=== PATIENT | male | born 1960 | race Two or more races ===

== ENCOUNTER 2017-09-16 09:29 | Emergency (ER) | payer MEDICAID ==
[~2017-09-16] VITALS: Ht 175.3 cm; Wt 94.0 kg
[~2017-09-16 09:29] MED LIST: ATOR40TA PO; BENZ0.5T38 PO; CARV3.122 PO; CITA40TA22 PO; LEVO75TA PO; LORA0.5T PO; MIRT15TA PO; OMEP20CA10 PO; RISP1TAB3 PO; SERT50TA PO
[2017-09-16 09:39] VITALS: BP 136/90
[2017-09-16 10:16] LABS: BASOPHILS % (AUTO) 0.6 % (0-1); EOSINOPHILS # (AUTO) 0.1 X10'3 (0-0.9); EOSINOPHILS % (AUTO) 2.4 % (0-6); HEMATOCRIT 43.2 % (42.0-52.0); HEMOGLOBIN 15.1 g/dl (14.0-17.9); LYMPHOCYTES # (AUTO) 1.3 X10'3 (1.1-4.8); LYMPHOCYTES % (AUTO) 23.4 % (21-51); MEAN CORPUSCULAR HEMOGLOBIN 28.7 PG (27.0-31.0); MEAN CORPUSCULAR HGB CONC 35.1 % (33.0-36.5); MEAN CORPUSCULAR VOLUME 81.9 FL (78-98); MEAN PLATELET VOLUME 8.5 FL (7.4-10.4); MONOCYTES # (AUTO) 0.5 X10'3 (0-0.9); MONOCYTES % (AUTO) 8.5 % (2-12); NEUTROPHILS # (AUTO) 3.7 X10'3 (1.8-7.7); NEUTROPHILS % (AUTO) 65.1 % (42-75); PLATELET COUNT 168 X10'3 (140-440); RED BLOOD COUNT 5.27 X10'6 (4.70-6.10); RED CELL DISTRIBUTION WIDTH 16.5 % (11.5-14.5); WHITE BLOOD COUNT 5.8 X10'3 (4.5-11.0)
[2017-09-16 10:26] LABS: INR 1.1 INR; PARTIAL THROMBOPLASTIN TIME 28 SECONDS (22-32); PROTHROMBIN TIME 11.5 SECONDS (9.0-12.0)
[2017-09-16 10:31] LABS: ALANINE AMINOTRANSFERASE 25 U/L (12-78); ALBUMIN/GLOBULIN RATIO 1.3 (1.1-1.5); ALKALINE PHOSPHATASE 179 IU/L (46-116); ANION GAP 6 (8-16); ASPARTATE AMINO TRANSFERASE 21 U/L (10-37); BILIRUBIN,TOTAL 0.9 MG/DL (0.1-1.0); BLOOD UREA NITROGEN 11 MG/DL (7-18); BUN/CREATININE RATIO 10.1 (5.4-32.0); CALCIUM 9.1 MG/DL (8.5-10.1); CHLORIDE 105 MMOL/L (99-107); CREATININE 1.09 MG/DL (0.60-1.10); GLUCOSE 97 MG/DL (70-104); SODIUM 140 MMOL/L (135-145); TOTAL CARBON DIOXIDE 28.8 MMOL/L (24-32); TOTAL PROTEIN 7.1 G/DL (6.4-8.2); eGFR 69 ML/MIN
== END 2017-09-16 13:08 | disposition home or self-care (01) ==
LOC: ER 09:31
DX: R53.81 Other malaise (principal); R51 Headache; M54.2 Cervicalgia; F12.90 Cannabis use, unspecified, uncomplicated; Z88.8 Allergy status to other drugs, medicaments and biological substances; Z79.899 Other long term (current) drug therapy
CPT/HCPCS: 36415; 71045; 80053; 83880; 84484; 85025; 85610; 85730; 93005; 99285

== ENCOUNTER 2018-01-26 11:59 | Emergency (ER) | payer MEDICAID ==
[~2018-01-26] VITALS: Ht 175.3 cm; Wt 103.0 kg
[2018-01-26 12:09] VITALS: BP 161/96
[2018-01-26] MEDS ORDERED: QUET150T2 PO (12:52)
== END 2018-01-26 14:27 | disposition home or self-care (01) ==
LOC: ER 12:03
DX: F41.9 Anxiety disorder, unspecified (principal); G47.00 Insomnia, unspecified; I10 Essential (primary) hypertension; E78.00 Pure hypercholesterolemia, unspecified; J44.1 Chronic obstructive pulmonary disease with (acute) exacerbation; F17.200 Nicotine dependence, unspecified, uncomplicated; F12.90 Cannabis use, unspecified, uncomplicated; Z88.8 Allergy status to other drugs, medicaments and biological substances; Z79.899 Other long term (current) drug therapy
CPT/HCPCS: 93005; 99284

== ENCOUNTER 2019-03-08 08:17 | Inpatient (IN) | payer MEDICAID ==
[~2019-03-08] VITALS: Ht 170.2 cm; Wt 112.4 kg
[2019-03-08] VITALS (10 sets, daily range): BP systolic 93–120; BP diastolic 46–68
[~2019-03-08 08:17] MED LIST changes: +BENZ0.5T27 PO; -BENZ0.5T38 PO; -OMEP20CA10 PO; +OMEP20CA15 PO
[2019-03-08] MEDS ORDERED: normal saline 1000ML IV soln IV ONE (08:40)
[2019-03-08] MEDS ORDERED: piperacillin/tazo 3.375gm/50ml 50 ML IV ONE (08:50)
[2019-03-08] MEDS ORDERED: VANCOMYCIN 1gm/H2O 200ml PB 200 ML IV ONE (08:50)
[2019-03-08 09:17] LABS: BASOPHILS % (AUTO) 0.2 % (0-1); EOSINOPHILS % (AUTO) 0 % (0-6); HEMATOCRIT 24.8 % (42.0-52.0); HEMOGLOBIN 8.5 g/dl (14.0-17.9); LYMPHOCYTES # (AUTO) 0.4 X10'3 (1.1-4.8); LYMPHOCYTES % (AUTO) 3.1 % (21-51); MEAN CORPUSCULAR HEMOGLOBIN 31.4 PG (27.0-31.0); MEAN CORPUSCULAR HGB CONC 34.3 g/dL (33.0-36.5); MEAN CORPUSCULAR VOLUME 91.5 FL (78-98); MONOCYTES # (AUTO) 0.8 X10'3 (0-0.9); MONOCYTES % (AUTO) 6.6 % (2-12); NEUTROPHILS # (AUTO) 11.3 X10'3 (1.8-7.7); NEUTROPHILS % (AUTO) 90.1 % (42-75); PLATELET COUNT 269 X10'3 (140-440); RED BLOOD COUNT 2.71 X10'6 (4.70-6.10); RED CELL DISTRIBUTION WIDTH 14.6 % (11.5-14.5); WHITE BLOOD COUNT 12.5 X10'3 (4.5-11.0)
[2019-03-08 09:34] LABS: ALANINE AMINOTRANSFERASE 15 U/L (12-78); ALBUMIN 2.4 G/DL (3.4-5.0); ALBUMIN/GLOBULIN RATIO 0.8 (1.1-1.5); ALKALINE PHOSPHATASE 117 IU/L (46-116); ANION GAP 21 (8-16); ASPARTATE AMINO TRANSFERASE 15 U/L (10-37); BILIRUBIN,TOTAL 0.4 MG/DL (0.1-1.0); BLOOD UREA NITROGEN 85 MG/DL (7-18); BUN/CREATININE RATIO 21.9 (5.4-32.0); CALCIUM 7.8 MG/DL (8.5-10.1); CHLORIDE 112 MMOL/L (99-107); CREATININE 3.88 MG/DL (0.60-1.10); ETHANOL < 0.010 GM/DL (0.0-0.010); GLUCOSE 166 MG/DL (70-104); POTASSIUM 3.3 MMOL/L (3.5-5.1); SODIUM 139 MMOL/L (135-145); TOTAL PROTEIN 5.4 G/DL (6.4-8.2); eGFR 16 ML/MIN
[2019-03-08 09:40] LABS: TOTAL CARBON DIOXIDE 5.9 MMOL/L (24-32)
[2019-03-08] MEDS ORDERED: heparin 10,000 units/1 ML INJ IV ONE ×2 (09:50→09:55)
[2019-03-08] MEDS: heparin 25,000 UNIT/250ml bag 250 ML IV SCH (10:08)
[2019-03-08 10:20] LABS: ABG HCO3 5.9 mmol/L (22.0-26.0); ABG OXYGEN SATURATION 71.4 % (95-98); ABG PCO2 (T) 19.6 mmHg (35.0-45.0); ABG PH (T) 7.095 (7.350-7.450); ABG PO2 (T) 38.6 mmHg (83-108); ALLEN'S TEST Positive; FCOHb 0.3 % (0.5-1.5); FMetHb 0.1 % (0.3-1.12); FO2Hb 71.1 % (94-100); TOTAL HEMOGLOBIN 8.7 G/dl (14.0-17.9)
--- NOTE | 2019-03-08 10:34 | NUR ---
Pat to CT at this time with FIDEL Medellin, c-collar in place, IV fluids continued (see emar).
[2019-03-08 10:48] LABS: CLARITY,URINE SLIGHTLY CLOUDY (Clear); COLOR,URINE YELLOW (Yellow); GLUCOSE, URINE NEGATIVE (Neg); KETONES,URINE NEGATIVE (Neg); LEUKOCYTE ESTERASE ,URINE NEGATIVE (Neg); NITRITES, URINE NEGATIVE (Neg); OCCULT BLOOD,URINE LARGE (Neg); PROTEIN,URINE 30 mg/dl (Neg); UA COLLECTION TYPE FOLEY CATH; UROBILINOGEN,URINE 0.2 E.U/dL (0.2-1.0)
--- NOTE | 2019-03-08 10:56 | NUR ---
BACK FROM CT AT THIS TIME, NO SIGNS OF DISTRESS NOTED, PATIENT AWAKE, AND ALERT, REPOSITIONED FOR COMFORT.
[2019-03-08 10:57] LABS: SQUAMOUS EPITHELIAL CELL,UR FEW /LPF (FEW)
[2019-03-08 10:58] LABS: BACTERIA,URINE FEW /HPF (Neg); MUCUS STRANDS FEW /LPF (Neg); RBC,URINE 0-2 /HPF (0-2); RENAL CELLS, URINE MANY /HPF; TRANSITIONAL EPI CELLS,URINE MODERATE /HPF; WBC,URINE 0-4 /HPF (0-4)
[2019-03-08] MEDS: sodium bicarbonate (8.4%) inj. 75 MEQ in sodium chloride 0.45% 1,000 ML IV SCH ×2 (10:59→17:24)
[2019-03-08] MEDS ORDERED: sodium bicarbonate (8.4%) inj. 100 MEQ in dextrose 5%-water 1,000 ML IV ONE (11:00)
[2019-03-08 11:16] LABS: URINE AMPHETAMINE SCREEN NEGATIVE (Neg); URINE BARBITUATE SCREEN NEGATIVE (Neg); URINE BENZODIAZEPINES SCREEN NEGATIVE (Neg); URINE CANNABINOID SCREEN POSITIVE (Neg); URINE COCAINE SCREEN NEGATIVE (Neg); URINE METHADONE SCREEN NEGATIVE (Neg); URINE OPIATE SCREEN NEGATIVE (Neg); URINE PHENCYCLIDINE SCREEN NEGATIVE (Neg)
[2019-03-08] MEDS: enoxaparin 40mg/0.4ml syringe SUBCUT SCH (11:24)
--- NOTE | 2019-03-08 11:50 | NUR ---
Patient in room CICU 2010. I have received report from Veronica PARRA and had the opportunity to ask questions and assume patient care. Patient arrived on unit via gurney accompanied by ed transporter, NC 6L sating 100%, patient in SR, with stable blood pressure, bicarb and heparin infusing, patient has a cold left foot, and blackened toe. Patient transferred to bed with no issues. Patient is very confused and needs constant reorientation
--- NOTE | 2019-03-08 13:20 | NUR ---
Patient confused and pulling at lines and quiroz, reorient patient and sitting outside of the door
[2019-03-08] MEDS ORDERED: etomidate 2mg/ml inj. ONE (14:00)
[2019-03-08] MEDS ORDERED: sod chloride 0.9% 10ml flush syringe IV ONE (14:00)
[2019-03-08 14:08] LABS: MAGNESIUM 2.9 MG/DL (1.5-2.4); PHOSPHORUS 3.3 MG/DL (2.3-4.5)
--- NOTE | 2019-03-08 14:30 | NUR ---
patient tried to crawl out of bed and pull quiroz out, reoriented patient
--- NOTE | 2019-03-08 15:15 | NUR ---
patient tried to pull out his quiroz again and continues to try and get out of bed
[2019-03-08] MEDS ORDERED: ASEN10TA9 SL (16:33)
[2019-03-08] MEDS ORDERED: AMIT25TA9 PO (16:33)
[2019-03-08] MEDS ORDERED: CLON0.5T4 PO (16:33)
[2019-03-08] MEDS ORDERED: LAMO100T PO (16:33)
[2019-03-08] MEDS ORDERED: ATOR40TA72 PO (16:33)
[2019-03-08] MEDS ORDERED: NAPR-1166 PO (16:33)
[2019-03-08] MEDS ORDERED: CARV6.253 PO (16:33)
[2019-03-08] MEDS ORDERED: BENZ1TAB7 PO (16:33)
[2019-03-08] MEDS ORDERED: LISI-600 PO (16:33)
[2019-03-08] MEDS ORDERED: LEVO137T2 PO (16:33)
[2019-03-08] MEDS ORDERED: MUPI22OI30 TOP (16:33)
--- NOTE | 2019-03-08 16:55 | NUR ---
In other patients room went to check on patient and he had pulled out his L AC field start, Cheyenne Briscoe was able to get a new R wrist IV started. Discussed patients behavior with charge nurse, and the need for the patient to have a sitter
--- NOTE | 2019-03-08 17:20 | NUR ---
patient pulled out his second iv, have placed mittens on patient to help protect him from pulling anything further out
[2019-03-08 17:25] LABS: CREATINE KINASE 844 U/L (39-308)
--- NOTE | 2019-03-08 18:00 | NUR ---
Patient in room CICU 2010. I have received report from FIDEL Quinn and had the opportunity to ask questions and assume patient care.
[2019-03-08 18:08] LABS: PARTIAL THROMBOPLASTIN TIME > 139 SECONDS (22-32)
--- NOTE | 2019-03-08 18:20 | NUR ---
Patient in room CICU 2010. I have received report from FIDEL Lott and had the opportunity to ask questions and assume patient care.
--- NOTE | 2019-03-08 18:28 | NUR ---
Problems reprioritized. Patient report given, questions answered & plan of care reviewed with Marianna PARRA.
--- NOTE | 2019-03-08 20:58 | NUR ---
Restarted Heparin drip 45 min late from 120 min pause. Will redraw patient DVT PTT at 2300.
[2019-03-08] MEDS ORDERED: HYDROmorphone inj. 0.5 MG/0.5 ML DISP.SYRIN IV PRN (21:00)
[2019-03-08] MEDS: HYDROmorphone inj. 0.5 MG/0.5 ML DISP.SYRIN IV PRN (21:21)
[2019-03-08 23:42] LABS: TOTAL PROTEIN,URINE RANDOM 62.8 MG/DL
[2019-03-08 23:43] LABS: CREATININE,URINE RANDOM 45.6 MG/DL
[2019-03-09] VITALS (26 sets, daily range): BP systolic 81–116; BP diastolic 48–68
[2019-03-09] MEDS: sodium bicarbonate (8.4%) inj. 75 MEQ in sodium chloride 0.45% 1,000 ML IV SCH ×4 (01:03→23:32)
--- NOTE | 2019-03-09 01:22 | NUR ---
drawn late Addendum: 03/09/19 at 0123 by Dariela Massey RN Amended: Links added.
--- NOTE | 2019-03-09 01:23 | NUR ---
Bed is not weighing patient correctly at this time, will re-attempt. Addendum: 03/09/19 at 0123 by Dariela Massey RN Amended: Links added.
[2019-03-09] MEDS: HYDROmorphone inj. 0.5 MG/0.5 ML DISP.SYRIN IV PRN ×3 (01:47→21:31)
[2019-03-09] MEDS: heparin 25,000 UNIT/250ml bag 250 ML IV SCH ×2 (02:26→19:34)
[2019-03-09 04:28] LABS: BASOPHILS % (AUTO) 0.1 % (0-1); EOSINOPHILS % (AUTO) 0 % (0-6); HEMOGLOBIN 7.1 g/dl (14.0-17.9); LYMPHOCYTES # (AUTO) 0.5 X10'3 (1.1-4.8); LYMPHOCYTES % (AUTO) 3.1 % (21-51); MEAN CORPUSCULAR HEMOGLOBIN 31.4 PG (27.0-31.0); MEAN CORPUSCULAR HGB CONC 35.5 g/dL (33.0-36.5); MEAN CORPUSCULAR VOLUME 88.3 FL (78-98); MEAN PLATELET VOLUME 7.5 FL (7.4-10.4); MONOCYTES % (AUTO) 6.5 % (2-12); NEUTROPHILS % (AUTO) 90.3 % (42-75); PLATELET COUNT 232 X10'3 (140-440); RED BLOOD COUNT 2.28 X10'6 (4.70-6.10); RED CELL DISTRIBUTION WIDTH 14.7 % (11.5-14.5); WHITE BLOOD COUNT 15.6 X10'3 (4.5-11.0)
[2019-03-09 04:32] LABS: HEMATOCRIT 20.1 % (42.0-52.0)
[2019-03-09 04:50] LABS: ALANINE AMINOTRANSFERASE 25 U/L (12-78); ALBUMIN 2.2 G/DL (3.4-5.0); ALBUMIN/GLOBULIN RATIO 0.8 (1.1-1.5); ALKALINE PHOSPHATASE 103 IU/L (46-116); ANION GAP 16 (8-16); ASPARTATE AMINO TRANSFERASE 105 U/L (10-37); BILIRUBIN,TOTAL 0.4 MG/DL (0.1-1.0); BLOOD UREA NITROGEN 75 MG/DL (7-18); BUN/CREATININE RATIO 26.4 (5.4-32.0); CHLORIDE 115 MMOL/L (99-107); CREATININE 2.84 MG/DL (0.60-1.10); GLUCOSE 131 MG/DL (70-104); MAGNESIUM 2.5 MG/DL (1.5-2.4); SODIUM 146 MMOL/L (135-145); TOTAL CARBON DIOXIDE 15.1 MMOL/L (24-32); TOTAL PROTEIN 4.9 G/DL (6.4-8.2); eGFR 23 ML/MIN
[2019-03-09 05:01] LABS: CREATINE KINASE 1622 U/L (39-308); POTASSIUM 2.2 MMOL/L (3.5-5.1)
--- NOTE | 2019-03-09 05:09 | NUR ---
Restraints off at approximately 0330. Addendum: 03/09/19 at 0510 by Dariela Massey RN Amended: Links added.
--- NOTE | 2019-03-09 05:28 | NUR ---
REPLACE POTASSIUM PER PROTOCOL. REDUCE AMOUNT BY HALF PER PROTOCOL FOR CREATININE ABOVE 2.5 Patient POTASSIUM IS 2.2, CREATININE IS 2.84. PER SUKHDEV, PHARMACIST GIVE PATIENT 4 BAGS OF POTASSIUM, NOT 8 BAGS PER PROTOCOL.
[2019-03-09] MEDS: potassium CL 10mEq/100ml bag 100 ML IV PRN ×4 (05:39→14:51)
--- NOTE | 2019-03-09 06:11 | NUR ---
Problems reprioritized. Patient report given, questions answered & plan of care reviewed with FIDEL Lott.
--- NOTE | 2019-03-09 06:30 | NUR ---
Patient in room CICU 2010. I have received report from Dariela Briscoe and had the opportunity to ask questions and assume patient care.
[2019-03-09] MEDS: enoxaparin 40mg/0.4ml syringe SUBCUT SCH (08:00)
--- NOTE | 2019-03-09 08:20 | NUR ---
called in regards to the repeat CPK being elevated at 1622 from 844, he stated that he will think about what he is going to do next
[2019-03-09 10:27] LABS: MEAN CORPUSCULAR HGB CONC 35.8 g/dL (33.0-36.5); MEAN CORPUSCULAR VOLUME 86.6 FL (78-98); MEAN PLATELET VOLUME 7.7 FL (7.4-10.4); PLATELET COUNT 233 X10'3 (140-440); RED BLOOD COUNT 2.17 X10'6 (4.70-6.10); RED CELL DISTRIBUTION WIDTH 14.8 % (11.5-14.5); WHITE BLOOD COUNT 15.5 X10'3 (4.5-11.0)
[2019-03-09 10:31] LABS: HEMATOCRIT 18.8 % (42.0-52.0); HEMOGLOBIN 6.7 g/dl (14.0-17.9)
[2019-03-09] MEDS: mupirocin 2% nasal ointment 1gm UD NS SCH ×2 (12:44→20:19)
[2019-03-09] MEDS: clonazePAM 0.5mg tablet PO SCH ×2 (12:44→20:17)
[2019-03-09 16:54] LABS: HEMOGLOBIN 7.7 g/dl (14.0-17.9); MEAN CORPUSCULAR HEMOGLOBIN 31.2 PG (27.0-31.0); MEAN CORPUSCULAR HGB CONC 35.3 g/dL (33.0-36.5); MEAN CORPUSCULAR VOLUME 88.6 FL (78-98); MEAN PLATELET VOLUME 8.1 FL (7.4-10.4); PLATELET COUNT 219 X10'3 (140-440); RED BLOOD COUNT 2.45 X10'6 (4.70-6.10); RED CELL DISTRIBUTION WIDTH 14.6 % (11.5-14.5); WHITE BLOOD COUNT 16.3 X10'3 (4.5-11.0)
[2019-03-09 16:59] LABS: HEMATOCRIT 21.7 % (42.0-52.0)
--- NOTE | 2019-03-09 18:43 | NUR ---
Problems reprioritized. Patient report given, questions answered & plan of care reviewed with Stuart PARRA.
[2019-03-09] MEDS: potassium Cl 20 mEq SR tablet PO PRN ×2 (19:28→23:32)
[2019-03-09] MEDS: ondansetron/PF 4mg/2ml inj IV PRN (19:28)
[2019-03-09] MEDS: atorvastatin 20mg tablet PO SCH (20:17)
[2019-03-09] MEDS: amitriptyline 25mg tablet PO SCH (20:17)
[2019-03-09] MEDS: benztropine 1mg tablet PO SCH (20:19)
[2019-03-09] MEDS ORDERED: lamoTRIgine 25mg tablet PO SCH (21:00)
[2019-03-10] VITALS (37 sets, daily range): BP systolic 81–123; BP diastolic 46–80
[2019-03-10] MEDS: HYDROmorphone inj. 0.5 MG/0.5 ML DISP.SYRIN IV PRN (03:45)
[2019-03-10 04:38] LABS: BASOPHILS % (AUTO) 0.1 % (0-1); EOSINOPHILS % (AUTO) 0 % (0-6); HEMOGLOBIN 7.2 g/dl (14.0-17.9); LYMPHOCYTES # (AUTO) 0.7 X10'3 (1.1-4.8); LYMPHOCYTES % (AUTO) 4.4 % (21-51); MEAN CORPUSCULAR HEMOGLOBIN 31.6 PG (27.0-31.0); MEAN CORPUSCULAR HGB CONC 35.7 g/dL (33.0-36.5); MEAN CORPUSCULAR VOLUME 88.3 FL (78-98); MEAN PLATELET VOLUME 7.9 FL (7.4-10.4); MONOCYTES % (AUTO) 6.1 % (2-12); NEUTROPHILS # (AUTO) 15.2 X10'3 (1.8-7.7); NEUTROPHILS % (AUTO) 89.4 % (42-75); PLATELET COUNT 201 X10'3 (140-440); RED BLOOD COUNT 2.29 X10'6 (4.70-6.10); RED CELL DISTRIBUTION WIDTH 14.4 % (11.5-14.5); WHITE BLOOD COUNT 17.1 X10'3 (4.5-11.0)
[2019-03-10 04:43] LABS: HEMATOCRIT 20.2 % (42.0-52.0)
[2019-03-10] MEDS: potassium Cl 20 mEq SR tablet PO PRN ×4 (04:47→13:34)
[2019-03-10 05:00] LABS: ALANINE AMINOTRANSFERASE 32 U/L (12-78); ALBUMIN/GLOBULIN RATIO 0.7 (1.1-1.5); ALKALINE PHOSPHATASE 107 IU/L (46-116); ANION GAP 14 (8-16); ASPARTATE AMINO TRANSFERASE 140 U/L (10-37); BILIRUBIN,TOTAL 0.6 MG/DL (0.1-1.0); BLOOD UREA NITROGEN 62 MG/DL (7-18); CALCIUM 7.1 MG/DL (8.5-10.1); CHLORIDE 112 MMOL/L (99-107); CREATININE 2.07 MG/DL (0.60-1.10); GLUCOSE 133 MG/DL (70-104); MAGNESIUM 2.1 MG/DL (1.5-2.4); PHOSPHORUS 1.7 MG/DL (2.3-4.5); SODIUM 143 MMOL/L (135-145); TOTAL CARBON DIOXIDE 17.2 MMOL/L (24-32); TOTAL PROTEIN 4.8 G/DL (6.4-8.2); eGFR 33 ML/MIN
[2019-03-10 05:04] LABS: POTASSIUM 2.3 MMOL/L (3.5-5.1)
[2019-03-10] MEDS: benztropine 1mg tablet PO SCH ×2 (07:38→20:24)
[2019-03-10] MEDS: levoTHYROXINE 25mcg tablet PO SCH (07:38)
[2019-03-10] MEDS: levoTHYROXINE 112mcg tablet PO SCH (07:38)
[2019-03-10] MEDS: ASENAPINE 10 MG SL SCH (07:39)
[2019-03-10] MEDS: clonazePAM 0.5mg tablet PO SCH ×3 (07:39→20:24)
[2019-03-10] MEDS: enoxaparin 40mg/0.4ml syringe SUBCUT SCH (07:39)
[2019-03-10] MEDS: mupirocin 2% nasal ointment 1gm UD NS SCH ×3 (07:45→20:24)
[2019-03-10] MEDS: sodium bicarbonate (8.4%) inj. 75 MEQ in sodium chloride 0.45% 1,000 ML IV SCH ×3 (07:46→20:26)
[2019-03-10] MEDS ORDERED: non-formulary drug (Levothyroxine Sodium 1 TAB) PO SCH (08:00)
[2019-03-10 10:01] LABS: MEAN CORPUSCULAR HEMOGLOBIN 31.4 PG (27.0-31.0); MEAN CORPUSCULAR HGB CONC 35.2 g/dL (33.0-36.5); MEAN PLATELET VOLUME 7.6 FL (7.4-10.4); PLATELET COUNT 209 X10'3 (140-440); RED BLOOD COUNT 2.24 X10'6 (4.70-6.10); RED CELL DISTRIBUTION WIDTH 14.6 % (11.5-14.5); WHITE BLOOD COUNT 16.5 X10'3 (4.5-11.0)
[2019-03-10] MEDS: heparin 25,000 UNIT/250ml bag 250 ML IV SCH (11:46)
[2019-03-10] MEDS: ondansetron/PF 4mg/2ml inj IV PRN (13:26)
[2019-03-10 13:48] LABS: OCCULT BLOOD STOOL NEGATIVE (Neg)
[2019-03-10 18:03] LABS: HEMOGLOBIN 7.6 g/dl (14.0-17.9); MEAN CORPUSCULAR HEMOGLOBIN 30.5 PG (27.0-31.0); MEAN CORPUSCULAR VOLUME 87.2 FL (78-98); MEAN PLATELET VOLUME 7.7 FL (7.4-10.4); PLATELET COUNT 199 X10'3 (140-440); RED BLOOD COUNT 2.49 X10'6 (4.70-6.10); RED CELL DISTRIBUTION WIDTH 15.3 % (11.5-14.5); WHITE BLOOD COUNT 14.1 X10'3 (4.5-11.0)
[2019-03-10 18:09] LABS: HEMATOCRIT 21.7 % (42.0-52.0)
[2019-03-10 18:41] LABS: % IRON SATURATION 78 % (11-46); IRON 93 UG/DL (53-167); TOTAL IRON BINDING CAPACITY 120 UG/DL (259-388)
[2019-03-10] MEDS: amitriptyline 25mg tablet PO SCH (20:24)
[2019-03-10] MEDS: atorvastatin 20mg tablet PO SCH (20:24)
[2019-03-10] MEDS: lamoTRIgine 25mg tablet PO SCH (20:25)
[2019-03-10] MEDS: lamoTRIgine 100mg tablet PO SCH (20:25)
[2019-03-10 23:13] LABS: HEMATOCRIT 24.8 % (42.0-52.0); MEAN CORPUSCULAR HGB CONC 32.3 g/dL (33.0-36.5); MEAN CORPUSCULAR VOLUME 95.9 FL (78-98); MEAN PLATELET VOLUME 7.1 FL (7.4-10.4); PLATELET COUNT 183 X10'3 (140-440); RED BLOOD COUNT 2.59 X10'6 (4.70-6.10); RED CELL DISTRIBUTION WIDTH 16.1 % (11.5-14.5)
[2019-03-11] VITALS (32 sets, daily range): BP systolic 83–119; BP diastolic 47–69
[2019-03-11] MEDS: nicotine 14mg patch - 24hr TD SCH ×2 (00:58→07:36)
[2019-03-11] MEDS: ondansetron/PF 4mg/2ml inj IV PRN (02:47)
[2019-03-11] MEDS: sodium bicarbonate (8.4%) inj. 75 MEQ in sodium chloride 0.45% 1,000 ML IV SCH ×3 (04:25→19:04)
[2019-03-11] MEDS: heparin 25,000 UNIT/250ml bag 250 ML IV SCH ×2 (04:26→11:40)
[2019-03-11] MEDS: HYDROmorphone inj. 0.5 MG/0.5 ML DISP.SYRIN IV PRN ×3 (05:50→17:29)
[2019-03-11 05:55] LABS: BASOPHILS % (AUTO) 0.1 % (0-1); EOSINOPHILS % (AUTO) 0.1 % (0-6); HEMOGLOBIN 7.2 g/dl (14.0-17.9); LYMPHOCYTES # (AUTO) 0.5 X10'3 (1.1-4.8); LYMPHOCYTES % (AUTO) 4.3 % (21-51); MEAN CORPUSCULAR HGB CONC 34.7 g/dL (33.0-36.5); MEAN CORPUSCULAR VOLUME 86.5 FL (78-98); MEAN PLATELET VOLUME 7.8 FL (7.4-10.4); MONOCYTES # (AUTO) 0.8 X10'3 (0-0.9); MONOCYTES % (AUTO) 6.4 % (2-12); NEUTROPHILS % (AUTO) 89.1 % (42-75); PLATELET COUNT 184 X10'3 (140-440); RED CELL DISTRIBUTION WIDTH 15.2 % (11.5-14.5); WHITE BLOOD COUNT 12.4 X10'3 (4.5-11.0)
[2019-03-11 06:07] LABS: HEMATOCRIT 20.7 % (42.0-52.0)
[2019-03-11 06:27] LABS: ALANINE AMINOTRANSFERASE 40 U/L (12-78); ALBUMIN 1.8 G/DL (3.4-5.0); ALBUMIN/GLOBULIN RATIO 0.8 (1.1-1.5); ALKALINE PHOSPHATASE 99 IU/L (46-116); ANION GAP 8 (8-16); ASPARTATE AMINO TRANSFERASE 161 U/L (10-37); BILIRUBIN,TOTAL 0.7 MG/DL (0.1-1.0); BLOOD UREA NITROGEN 55 MG/DL (7-18); BUN/CREATININE RATIO 29.7 (5.4-32.0); CALCIUM 7.2 MG/DL (8.5-10.1); CHLORIDE 113 MMOL/L (99-107); CREATININE 1.85 MG/DL (0.60-1.10); GLUCOSE 136 MG/DL (70-104); MAGNESIUM 1.9 MG/DL (1.5-2.4); PHOSPHORUS 1.3 MG/DL (2.3-4.5); SODIUM 144 MMOL/L (135-145); TOTAL CARBON DIOXIDE 23.3 MMOL/L (24-32); TOTAL PROTEIN 4.1 G/DL (6.4-8.2); eGFR 37 ML/MIN
[2019-03-11 06:34] LABS: POTASSIUM 2.6 MMOL/L (3.5-5.1)
[2019-03-11] MEDS: potassium Cl 20 mEq SR tablet PO PRN ×3 (07:36→17:26)
[2019-03-11] MEDS: benztropine 1mg tablet PO SCH ×2 (07:37→21:09)
[2019-03-11] MEDS: levoTHYROXINE 112mcg tablet PO SCH (07:37)
[2019-03-11] MEDS: levoTHYROXINE 25mcg tablet PO SCH (07:37)
[2019-03-11] MEDS: mupirocin 2% nasal ointment 1gm UD NS SCH (07:37)
[2019-03-11] MEDS: clonazePAM 0.5mg tablet PO SCH ×3 (07:37→21:01)
[2019-03-11] MEDS: ASENAPINE 10 MG SL SCH (07:53)
[2019-03-11 11:02] LABS: HEMATOCRIT 22.3 % (42.0-52.0); HEMOGLOBIN 7.9 g/dl (14.0-17.9); MEAN CORPUSCULAR HEMOGLOBIN 30.2 PG (27.0-31.0); MEAN CORPUSCULAR HGB CONC 35.3 g/dL (33.0-36.5); MEAN CORPUSCULAR VOLUME 85.7 FL (78-98); MEAN PLATELET VOLUME 7.5 FL (7.4-10.4); PLATELET COUNT 181 X10'3 (140-440); RED CELL DISTRIBUTION WIDTH 14.7 % (11.5-14.5); WHITE BLOOD COUNT 13.4 X10'3 (4.5-11.0)
[2019-03-11] MEDS ORDERED: iohexol 300mg/ml 100ml inj. ONE (14:37)
[2019-03-11] MEDS ORDERED: heparin 1,000 UNITS/NS 500ml 500 ML ONE (14:37)
[2019-03-11] MEDS ORDERED: fentaNYL/PF 50MCG/1 ML 2ML syringe ONE (14:37)
[2019-03-11] MEDS ORDERED: LIDOcaine 1%/PF 5ML 10 MG/ML VIAL ONE (14:37)
[2019-03-11] MEDS ORDERED: midazolam 2 mg/2 ml injection ONE (14:37)
--- NOTE | 2019-03-11 21:00 | NUR ---
Unable to obtain weight. AM staff will be notified.
[2019-03-11] MEDS: lamoTRIgine 25mg tablet PO SCH (21:01)
[2019-03-11] MEDS: atorvastatin 20mg tablet PO SCH (21:01)
[2019-03-11] MEDS: lamoTRIgine 100mg tablet PO SCH (21:02)
[2019-03-11] MEDS: amitriptyline 25mg tablet PO SCH (21:02)
[2019-03-12] VITALS (31 sets, daily range): BP systolic 69–119; BP diastolic 43–79
[2019-03-12 03:22] LABS: PARTIAL THROMBOPLASTIN TIME 29 SECONDS (22-32)
[2019-03-12 03:32] LABS: ALANINE AMINOTRANSFERASE 38 U/L (12-78); ALBUMIN 1.6 G/DL (3.4-5.0); ALBUMIN/GLOBULIN RATIO 0.7 (1.1-1.5); ALKALINE PHOSPHATASE 93 IU/L (46-116); ANION GAP 6 (8-16); ASPARTATE AMINO TRANSFERASE 134 U/L (10-37); BILIRUBIN,TOTAL 0.5 MG/DL (0.1-1.0); BLOOD UREA NITROGEN 56 MG/DL (7-18); BUN/CREATININE RATIO 34.8 (5.4-32.0); CALCIUM 7.1 MG/DL (8.5-10.1); CHLORIDE 111 MMOL/L (99-107); CREATININE 1.61 MG/DL (0.60-1.10); GLUCOSE 125 MG/DL (70-104); MAGNESIUM 1.7 MG/DL (1.5-2.4); POTASSIUM 3.5 MMOL/L (3.5-5.1); SODIUM 141 MMOL/L (135-145); TOTAL PROTEIN 3.8 G/DL (6.4-8.2); eGFR 44 ML/MIN
[2019-03-12 03:33] LABS: PHOSPHORUS 1.2 MG/DL (2.3-4.5)
[2019-03-12] MEDS: sodium bicarbonate (8.4%) inj. 75 MEQ in sodium chloride 0.45% 1,000 ML IV SCH ×4 (03:35→18:13)
--- NOTE | 2019-03-12 04:00 | NUR ---
Lab called with critical Phos of 1.2. Pt bp also low. DELILAH Saez called and notified and ordered 200cc Albumin.
[2019-03-12] MEDS ORDERED: albumin (human) 25% 100 ML IV solution IV ONE (04:10)
[2019-03-12 05:02] LABS: BASOPHILS % (AUTO) 0.1 % (0-1); EOSINOPHILS % (AUTO) 0 % (0-6); LYMPHOCYTES # (AUTO) 0.8 X10'3 (1.1-4.8); MEAN CORPUSCULAR HEMOGLOBIN 30.2 PG (27.0-31.0); MEAN CORPUSCULAR HGB CONC 35.1 g/dL (33.0-36.5); MEAN CORPUSCULAR VOLUME 86.1 FL (78-98); MEAN PLATELET VOLUME 7.7 FL (7.4-10.4); MONOCYTES # (AUTO) 0.9 X10'3 (0-0.9); MONOCYTES % (AUTO) 7.5 % (2-12); NEUTROPHILS # (AUTO) 10.8 X10'3 (1.8-7.7); NEUTROPHILS % (AUTO) 86.4 % (42-75); PLATELET COUNT 168 X10'3 (140-440); RED BLOOD COUNT 2.19 X10'6 (4.70-6.10); RED CELL DISTRIBUTION WIDTH 15.4 % (11.5-14.5); WHITE BLOOD COUNT 12.6 X10'3 (4.5-11.0)
[2019-03-12] MEDS: ondansetron/PF 4mg/2ml inj IV PRN (05:05)
[2019-03-12 05:22] LABS: HEMOGLOBIN 6.6 g/dl (14.0-17.9)
[2019-03-12 05:23] LABS: HEMATOCRIT 18.8 % (42.0-52.0)
[2019-03-12] MEDS: ASENAPINE 10 MG SL SCH (08:00)
[2019-03-12] MEDS: nicotine 14mg patch - 24hr TD SCH (09:46)
[2019-03-12] MEDS: benztropine 1mg tablet PO SCH ×2 (09:46→20:26)
[2019-03-12] MEDS: levoTHYROXINE 112mcg tablet PO SCH (09:47)
[2019-03-12] MEDS: levoTHYROXINE 25mcg tablet PO SCH (09:47)
[2019-03-12] MEDS: clonazePAM 0.5mg tablet PO SCH ×3 (09:47→20:26)
[2019-03-12 10:37] LABS: MEAN CORPUSCULAR HEMOGLOBIN 30.7 PG (27.0-31.0); MEAN CORPUSCULAR HGB CONC 35.6 g/dL (33.0-36.5); MEAN CORPUSCULAR VOLUME 86.2 FL (78-98); MEAN PLATELET VOLUME 7.5 FL (7.4-10.4); PLATELET COUNT 145 X10'3 (140-440); RED BLOOD COUNT 2.03 X10'6 (4.70-6.10); RED CELL DISTRIBUTION WIDTH 14.7 % (11.5-14.5)
[2019-03-12 10:40] LABS: HEMOGLOBIN 6.2 g/dl (14.0-17.9)
[2019-03-12 10:41] LABS: HEMATOCRIT 17.5 % (42.0-52.0)
[2019-03-12 13:20] LABS: HEMATOCRIT 22.1 % (42.0-52.0); HEMOGLOBIN 7.7 g/dl (14.0-17.9); MEAN CORPUSCULAR VOLUME 85.9 FL (78-98); MEAN PLATELET VOLUME 8.2 FL (7.4-10.4); PLATELET COUNT 163 X10'3 (140-440); RED BLOOD COUNT 2.58 X10'6 (4.70-6.10); RED CELL DISTRIBUTION WIDTH 15.4 % (11.5-14.5); WHITE BLOOD COUNT 14.5 X10'3 (4.5-11.0)
[2019-03-12] MEDS: acetaminophen 325mg tablet PO PRN ×2 (15:54→22:54)
[2019-03-12] MEDS: HYDROmorphone inj. 0.5 MG/0.5 ML DISP.SYRIN IV PRN (16:45)
[2019-03-12] MEDS ORDERED: OLANZapine 2.5MG tablet PO SCH (17:15)
[2019-03-12] MEDS ORDERED: OLANZAPINE 5 MG TABLET PO SCH (17:21)
[2019-03-12] MEDS ORDERED: OLANZapine 2.5MG tablet PO ONE (17:30)
[2019-03-12] MEDS: OLANZAPINE 5 MG TABLET PO SCH (17:51)
--- NOTE | 2019-03-12 18:30 | NUR ---
Patient in room CICU 2010. I have received report from Stuart PARRA and had the opportunity to ask questions and assume patient care.
[2019-03-12 19:24] LABS: HEMOGLOBIN 7.2 g/dl (14.0-17.9); MEAN CORPUSCULAR HEMOGLOBIN 29.5 PG (27.0-31.0); MEAN CORPUSCULAR HGB CONC 34.6 g/dL (33.0-36.5); MEAN CORPUSCULAR VOLUME 85.4 FL (78-98); MEAN PLATELET VOLUME 7.9 FL (7.4-10.4); PLATELET COUNT 151 X10'3 (140-440); RED BLOOD COUNT 2.43 X10'6 (4.70-6.10); RED CELL DISTRIBUTION WIDTH 14.9 % (11.5-14.5); WHITE BLOOD COUNT 13.8 X10'3 (4.5-11.0)
[2019-03-12 19:26] LABS: HEMATOCRIT 20.7 % (42.0-52.0)
[2019-03-12] MEDS: lamoTRIgine 100mg tablet PO SCH (20:26)
[2019-03-12] MEDS: lamoTRIgine 25mg tablet PO SCH (20:26)
[2019-03-12] MEDS: amitriptyline 25mg tablet PO SCH (20:26)
[2019-03-12] MEDS: atorvastatin 20mg tablet PO SCH (20:26)
[2019-03-12 23:53] LABS: MEAN CORPUSCULAR HEMOGLOBIN 29.8 PG (27.0-31.0); MEAN CORPUSCULAR HGB CONC 35.1 g/dL (33.0-36.5); MEAN CORPUSCULAR VOLUME 84.7 FL (78-98); MEAN PLATELET VOLUME 7.7 FL (7.4-10.4); PLATELET COUNT 141 X10'3 (140-440); RED BLOOD COUNT 2.28 X10'6 (4.70-6.10); RED CELL DISTRIBUTION WIDTH 15.4 % (11.5-14.5); WHITE BLOOD COUNT 13.2 X10'3 (4.5-11.0)
[2019-03-12 23:58] LABS: HEMATOCRIT 19.3 % (42.0-52.0); HEMOGLOBIN 6.8 g/dl (14.0-17.9)
[2019-03-13] VITALS (28 sets, daily range): BP systolic 76–135; BP diastolic 45–81
[2019-03-13] MEDS ORDERED: calcium chloride inj. 1,000 MG in normal saline 100ml IV soln 90 ML IV ONE (03:05)
--- NOTE | 2019-03-13 03:06 | NUR ---
Telephoned Se Johnson to inform that pt's bp map has been below 60 for 3 hours, during which pt received 1 unit of prbc. New orders given.
[2019-03-13] MEDS: sodium bicarbonate (8.4%) inj. 75 MEQ in sodium chloride 0.45% 1,000 ML IV SCH ×2 (05:39→09:11)
--- NOTE | 2019-03-13 06:00 | NUR ---
Unable to draw pt's labs after two attempts. Lab had pt down as a line, will send someone in 15 mins to draw labs.
--- NOTE | 2019-03-13 06:30 | NUR ---
Patient in room CICU 2010. I have received report from Elda PARRA and had the opportunity to ask questions and assume patient care.
[2019-03-13 06:58] LABS: BASOPHILS % (AUTO) 0.2 % (0-1); EOSINOPHILS % (AUTO) 0 % (0-6); HEMATOCRIT 23.2 % (42.0-52.0); HEMOGLOBIN 8.2 g/dl (14.0-17.9); LYMPHOCYTES # (AUTO) 0.3 X10'3 (1.1-4.8); LYMPHOCYTES % (AUTO) 2.7 % (21-51); MEAN CORPUSCULAR HEMOGLOBIN 30.4 PG (27.0-31.0); MEAN CORPUSCULAR HGB CONC 35.5 g/dL (33.0-36.5); MEAN CORPUSCULAR VOLUME 85.6 FL (78-98); MEAN PLATELET VOLUME 7.8 FL (7.4-10.4); MONOCYTES # (AUTO) 0.8 X10'3 (0-0.9); MONOCYTES % (AUTO) 5.8 % (2-12); NEUTROPHILS # (AUTO) 11.9 X10'3 (1.8-7.7); NEUTROPHILS % (AUTO) 91.3 % (42-75); PLATELET COUNT 146 X10'3 (140-440); RED BLOOD COUNT 2.71 X10'6 (4.70-6.10); RED CELL DISTRIBUTION WIDTH 15.1 % (11.5-14.5)
[2019-03-13 07:05] LABS: PARTIAL THROMBOPLASTIN TIME 29 SECONDS (22-32)
[2019-03-13 07:06] LABS: ALANINE AMINOTRANSFERASE 44 U/L (12-78); ALBUMIN 2.1 G/DL (3.4-5.0); ALBUMIN/GLOBULIN RATIO 0.9 (1.1-1.5); ALKALINE PHOSPHATASE 146 IU/L (46-116); ANION GAP 8 (8-16); ASPARTATE AMINO TRANSFERASE 200 U/L (10-37); BILIRUBIN,TOTAL 1.3 MG/DL (0.1-1.0); BLOOD UREA NITROGEN 51 MG/DL (7-18); BUN/CREATININE RATIO 30.5 (5.4-32.0); CALCIUM 7.6 MG/DL (8.5-10.1); CHLORIDE 110 MMOL/L (99-107); CREATININE 1.67 MG/DL (0.60-1.10); GLUCOSE 114 MG/DL (70-104); MAGNESIUM 1.6 MG/DL (1.5-2.4); PHOSPHORUS 2.2 MG/DL (2.3-4.5); SODIUM 145 MMOL/L (135-145); TOTAL CARBON DIOXIDE 26.6 MMOL/L (24-32); TOTAL PROTEIN 4.5 G/DL (6.4-8.2); eGFR 42 ML/MIN
[2019-03-13 07:14] LABS: POTASSIUM 2.9 MMOL/L (3.5-5.1)
[2019-03-13] MEDS: levoTHYROXINE 112mcg tablet PO SCH (07:27)
[2019-03-13] MEDS: levoTHYROXINE 25mcg tablet PO SCH (07:27)
[2019-03-13] MEDS: potassium Cl 20 mEq SR tablet PO PRN (07:28)
[2019-03-13] MEDS: ASENAPINE 10 MG SL SCH (08:00)
[2019-03-13] MEDS: nicotine 14mg patch - 24hr TD SCH (08:00)
[2019-03-13] MEDS: ondansetron/PF 4mg/2ml inj IV PRN (08:21)
[2019-03-13] MEDS: clonazePAM 0.5mg tablet PO SCH ×3 (09:08→20:11)
[2019-03-13] MEDS: OLANZAPINE 5 MG TABLET PO SCH (09:08)
[2019-03-13] MEDS: benztropine 1mg tablet PO SCH ×2 (09:08→20:10)
[2019-03-13] MEDS: acetaminophen 325mg tablet PO PRN (09:08)
[2019-03-13] MEDS: HYDROmorphone inj. 0.5 MG/0.5 ML DISP.SYRIN IV PRN (09:54)
[2019-03-13] MEDS: normal saline 1000ml 1,000 ML IV SCH ×2 (10:27→20:11)
--- NOTE | 2019-03-13 12:49 | NUR ---
Initial: Pt admit w/ ALOC found down after fall from bed at home. Currently AOx2 w/ anxiety hx. Pt found to have L leg thrombosis w/ L medial/plantar/great toe foot necrotic arterial ulcers present and hx PAD. Pt PO remains poor refusing most meals since admit past 5 days not meeting healing needs. RN reports pt tolerated drinking liquids much better and added ensure enlive TIDWM for additional protein/kcals needs. Will monitor for ONS tolerance. Surgeon consulted and possible amputation if cannot salvage limb per MD note. IF PO remains poor given wound healing and potential surgical needs pt may require alternative nutrition. LBM 03/12. Will continue to monitor. Rec: 1. continue regular diet; encourage PO 2. ensure enlive TIDWM 3. MVI for wounds per MD approval 4. bowel care as needed 5. high protein IF ALOC improves and more appropraite prior to d/c 6. If poor PO persists consider alternative nutrition given healing needs Addendum: 03/13/19 at [address] Amended: Links added.
[2019-03-13 13:03] LABS: HEMATOCRIT 26.4 % (42.0-52.0); HEMOGLOBIN 9.4 g/dl (14.0-17.9); MEAN CORPUSCULAR HEMOGLOBIN 30.3 PG (27.0-31.0); MEAN CORPUSCULAR HGB CONC 35.7 g/dL (33.0-36.5); MEAN PLATELET VOLUME 7.6 FL (7.4-10.4); PLATELET COUNT 162 X10'3 (140-440); RED BLOOD COUNT 3.11 X10'6 (4.70-6.10); RED CELL DISTRIBUTION WIDTH 15.1 % (11.5-14.5); WHITE BLOOD COUNT 7.9 X10'3 (4.5-11.0)
[2019-03-13] MEDS: POTASSIUM BICARB 20meq eff tab 20 MEQ TABLET.EFF PO SCH ×2 (13:09→20:11)
[2019-03-13] MEDS: lactose-reduced food (Ensure Enlive) - 237ml bottle PO SCH ×2 (13:09→18:00)
--- NOTE | 2019-03-13 18:23 | NUR ---
Problems reprioritized. Patient report given, questions answered & plan of care reviewed with Gayle PARRA.
[2019-03-13] MEDS: lamoTRIgine 100mg tablet PO SCH (20:11)
[2019-03-13] MEDS: lamoTRIgine 25mg tablet PO SCH (20:11)
[2019-03-13] MEDS: amitriptyline 25mg tablet PO SCH (20:11)
[2019-03-13] MEDS: atorvastatin 20mg tablet PO SCH (20:12)
[2019-03-13 20:23] LABS: HEMATOCRIT 26.2 % (42.0-52.0); HEMOGLOBIN 9.4 g/dl (14.0-17.9); MEAN CORPUSCULAR HEMOGLOBIN 30.6 PG (27.0-31.0); MEAN CORPUSCULAR HGB CONC 35.8 g/dL (33.0-36.5); MEAN CORPUSCULAR VOLUME 85.6 FL (78-98); MEAN PLATELET VOLUME 8.2 FL (7.4-10.4); PLATELET COUNT 163 X10'3 (140-440); RED BLOOD COUNT 3.06 X10'6 (4.70-6.10); RED CELL DISTRIBUTION WIDTH 15.1 % (11.5-14.5); WHITE BLOOD COUNT 10.5 X10'3 (4.5-11.0)
[2019-03-14] VITALS (25 sets, daily range): BP systolic 80–120; BP diastolic 42–96
[2019-03-14 05:00] LABS: PARTIAL THROMBOPLASTIN TIME 36 SECONDS (22-32)
[2019-03-14 05:12] LABS: ALANINE AMINOTRANSFERASE 41 U/L (12-78); ALBUMIN 1.6 G/DL (3.4-5.0); ALBUMIN/GLOBULIN RATIO 0.6 (1.1-1.5); ALKALINE PHOSPHATASE 97 IU/L (46-116); ANION GAP 9 (8-16); ASPARTATE AMINO TRANSFERASE 145 U/L (10-37); BILIRUBIN,TOTAL 1.2 MG/DL (0.1-1.0); BLOOD UREA NITROGEN 45 MG/DL (7-18); BUN/CREATININE RATIO 26.6 (5.4-32.0); CALCIUM 7.5 MG/DL (8.5-10.1); CHLORIDE 109 MMOL/L (99-107); CREATININE 1.69 MG/DL (0.60-1.10); GLUCOSE 116 MG/DL (70-104); MAGNESIUM 1.6 MG/DL (1.5-2.4); PHOSPHORUS 2.9 MG/DL (2.3-4.5); POTASSIUM 3.1 MMOL/L (3.5-5.1); SODIUM 142 MMOL/L (135-145); TOTAL CARBON DIOXIDE 24.3 MMOL/L (24-32); TOTAL PROTEIN 4.2 G/DL (6.4-8.2); eGFR 42 ML/MIN
[2019-03-14 05:18] LABS: BASOPHILS % (AUTO) 0.1 % (0-1); EOSINOPHILS % (AUTO) 0 % (0-6); HEMATOCRIT 24.8 % (42.0-52.0); HEMOGLOBIN 8.8 g/dl (14.0-17.9); LYMPHOCYTES # (AUTO) 0.2 X10'3 (1.1-4.8); LYMPHOCYTES % (AUTO) 1.9 % (21-51); MEAN CORPUSCULAR HEMOGLOBIN 30.6 PG (27.0-31.0); MEAN CORPUSCULAR HGB CONC 35.5 g/dL (33.0-36.5); MEAN CORPUSCULAR VOLUME 86.2 FL (78-98); MONOCYTES # (AUTO) 0.4 X10'3 (0-0.9); MONOCYTES % (AUTO) 4.8 % (2-12); NEUTROPHILS # (AUTO) 7.9 X10'3 (1.8-7.7); NEUTROPHILS % (AUTO) 93.2 % (42-75); PLATELET COUNT 174 X10'3 (140-440); RED BLOOD COUNT 2.87 X10'6 (4.70-6.10); RED CELL DISTRIBUTION WIDTH 15.6 % (11.5-14.5); WHITE BLOOD COUNT 8.5 X10'3 (4.5-11.0)
[2019-03-14] MEDS: normal saline 1000ml 1,000 ML IV SCH ×2 (05:27→16:03)
--- NOTE | 2019-03-14 06:55 | NUR ---
Patient in room CICU 2010. I have received report from Gayle PARRA and had the opportunity to ask questions and assume patient care.
[2019-03-14] MEDS: potassium CL 10mEq/100ml bag 100 ML IV PRN (07:11)
[2019-03-14] MEDS: levoTHYROXINE 112mcg tablet PO SCH (07:11)
[2019-03-14] MEDS: levoTHYROXINE 25mcg tablet PO SCH (07:11)
[2019-03-14] MEDS: ASENAPINE 10 MG SL SCH (08:00)
[2019-03-14] MEDS: clonazePAM 0.5mg tablet PO SCH ×3 (08:16→20:56)
[2019-03-14] MEDS: benztropine 1mg tablet PO SCH ×2 (08:16→20:06)
[2019-03-14] MEDS: POTASSIUM BICARB 20meq eff tab 20 MEQ TABLET.EFF PO SCH ×3 (08:16→20:07)
[2019-03-14] MEDS: OLANZAPINE 5 MG TABLET PO SCH (08:16)
[2019-03-14] MEDS: nicotine 14mg patch - 24hr TD SCH (08:16)
[2019-03-14] MEDS: lactose-reduced food (Ensure Enlive) - 237ml bottle PO SCH ×3 (08:17→18:00)
--- NOTE | 2019-03-14 08:30 | NUR ---
called Dr. Ritter in regards to patient becoming more tachypneic,tachycardic, nauseated and vomiting. Explained to him my assessment that the patients lung kimball sound very corse and he is complaining of belly pain. He ordered a chest xray. no other new orders at this time
[2019-03-14] MEDS: ondansetron/PF 4mg/2ml inj IV PRN (08:35)
--- NOTE | 2019-03-14 08:50 | NUR ---
Dr. Ohara called and stated that the patient has a pneumoperitoneum and request Dr. Hyde phone number. [phone] Dr. Ritter by assessed the patient after receiving the phone call from Dr. Ohara, he called the air traffic control supervisor surgeon Dr. Katz who will be by to assess the patient 909 called the Rosa at the listed home number and cell phone, no answer will try again
[2019-03-14] MEDS: HYDROmorphone inj. 0.5 MG/0.5 ML DISP.SYRIN IV PRN (09:01)
[2019-03-14] MEDS ORDERED: LIDOcaine 1% 30ml preserv. free vial ONE (09:38)
[2019-03-14] MEDS ORDERED: BUPIVAcaine/PF 2.5 mg/ml (0.25%) 30ml vial ONE (09:38)
[2019-03-14] MEDS ORDERED: ROPIVAcaine 0.5% (5mg/ml) 30ml vial ONE (09:38)
[2019-03-14] MEDS: piperacillin/tazo 3.375gm/50ml 50 ML IV SCH ×3 (10:00→23:52)
[2019-03-14] MEDS: fluconazole-Diflucan 200mg/NS 100 ML IV SCH (10:00)
[2019-03-14] MEDS ORDERED: midazolam 2 mg/2 ml injection ONE ×3 (10:11→10:19)
[2019-03-14] MEDS ORDERED: NORepinephrine 8mg/ 250ml NS 250 ML IV ONE ×2 (10:33→14:43)
[2019-03-14] MEDS ORDERED: sevoflurane 250ml liquid IH ONE (10:41)
[2019-03-14] MEDS ORDERED: NORepinephrine 8 MG in NS 250 ML BAG (32 mcg/ml) IV ONE (10:41)
[2019-03-14] MEDS ORDERED: [UNRECOGNIZED DRUG - OTHER] IV ONE (10:41)
[2019-03-14] MEDS ORDERED: fentaNYL /PF 50mcg/ml 5ml ampule ONE (10:47)
[2019-03-14] MEDS ORDERED: MIDAZolam 1mg/ml 10ml vial ONE (10:47)
[2019-03-14] MEDS ORDERED: albumin (Human) 5% 250ml 250 ML IV ONE ×2 (11:17)
[2019-03-14] MEDS ORDERED: rocuronium 10mg/ml inj IV ONE (11:18)
[2019-03-14] MEDS ORDERED: ePHEDrine 50MG/ML INJ. ONE (11:18)
[2019-03-14] MEDS ORDERED: ipratropium/albuterol 3ml nebule NEB PRN (12:35)
[2019-03-14] MEDS ORDERED: midazolam 2 mg/2 ml injection IV ONE (12:35)
[2019-03-14] MEDS ORDERED: fentaNYL/PF 50MCG/1 ML 2ML syringe IV PRN (12:35)
[2019-03-14 13:18] LABS: HEMATOCRIT 24.1 % (42.0-52.0); HEMOGLOBIN 8.3 g/dl (14.0-17.9); MEAN CORPUSCULAR HEMOGLOBIN 30.1 PG (27.0-31.0); MEAN CORPUSCULAR HGB CONC 34.6 g/dL (33.0-36.5); MEAN CORPUSCULAR VOLUME 87.1 FL (78-98); MEAN PLATELET VOLUME 7.7 FL (7.4-10.4); PLATELET COUNT 214 X10'3 (140-440); RED BLOOD COUNT 2.76 X10'6 (4.70-6.10); RED CELL DISTRIBUTION WIDTH 15.4 % (11.5-14.5); WHITE BLOOD COUNT 8.4 X10'3 (4.5-11.0)
[2019-03-14] MEDS: midazolam 100mg in NS 100ml 100 ML IV PRN (13:32)
[2019-03-14] MEDS: FENTANYL-0.9 % NACL/PF 100 ML IV PRN ×2 (13:33→23:42)
[2019-03-14] MEDS: ipratropium/albuterol 3ml nebule NEB SCH ×3 (14:44→22:59)
[2019-03-14] MEDS ORDERED: NORepinephrine 8mg/ 250ml NS 250 ML IV SCH (14:55)
--- NOTE | 2019-03-14 18:37 | NUR ---
Problems reprioritized. Patient report given, questions answered & plan of care reviewed with Raymond PARRA.
[2019-03-14] MEDS: NORepinephrine 8mg/ 250ml NS 250 ML IV SCH (18:41)
[2019-03-14 18:50] LABS: ABG BASE EXCESS -5.2 mmol/L (-2.0-3.0); ABG HCO3 18.6 mmol/L (22.0-26.0); ABG OXYGEN SATURATION 96.4 % (95-98); ABG PCO2 (T) 31.4 mmHg (35.0-45.0); ABG PH (T) 7.394 (7.350-7.450); ABG PO2 (T) 99.8 mmHg (83-108); FCOHb 0.3 % (0.5-1.5); FMetHb 0.2 % (0.3-1.12); FO2Hb 95.9 % (94-100); MINUTE VOLUME 12 L/min; PEEP 5 cm H2O; RESPIRATORY RATE 20 b/min; RESPIRATORY RATE (OBSERVED) 26 b/min; TIDAL VOLUME 450 mL; TOTAL HEMOGLOBIN 9.3 G/dl (14.0-17.9)
[2019-03-14] MEDS: enoxaparin 30mg/0.3ml syringe SQ SCH (20:07)
[2019-03-14] MEDS ORDERED: albumin (human) 25% 100 ML IV solution IV ONE (20:40)
[2019-03-14 20:43] LABS: HEMATOCRIT 23.3 % (42.0-52.0); HEMOGLOBIN 8.1 g/dl (14.0-17.9); MEAN CORPUSCULAR HEMOGLOBIN 30.6 PG (27.0-31.0); MEAN CORPUSCULAR HGB CONC 34.8 g/dL (33.0-36.5); MEAN CORPUSCULAR VOLUME 87.8 FL (78-98); MEAN PLATELET VOLUME 7.5 FL (7.4-10.4); PLATELET COUNT 205 X10'3 (140-440); RED BLOOD COUNT 2.66 X10'6 (4.70-6.10); RED CELL DISTRIBUTION WIDTH 15.4 % (11.5-14.5); WHITE BLOOD COUNT 7.3 X10'3 (4.5-11.0)
[2019-03-14 20:51] LABS: ALBUMIN 1.5 G/DL (3.4-5.0); ANION GAP 10 (8-16); BLOOD UREA NITROGEN 50 MG/DL (7-18); BUN/CREATININE RATIO 26.7 (5.4-32.0); CALCIUM 7.1 MG/DL (8.5-10.1); CHLORIDE 113 MMOL/L (99-107); CREATININE 1.87 MG/DL (0.60-1.10); GLUCOSE 121 MG/DL (70-104); MAGNESIUM 1.6 MG/DL (1.5-2.4); PHOSPHORUS 3.4 MG/DL (2.3-4.5); POTASSIUM 3.4 MMOL/L (3.5-5.1); SODIUM 145 MMOL/L (135-145); TOTAL CARBON DIOXIDE 22.2 MMOL/L (24-32); eGFR 37 ML/MIN
[2019-03-14] MEDS: lamoTRIgine 25mg tablet PO SCH (20:55)
[2019-03-14] MEDS: amitriptyline 25mg tablet PO SCH (20:56)
[2019-03-14] MEDS: atorvastatin 20mg tablet PO SCH (20:56)
[2019-03-14] MEDS: lamoTRIgine 100mg tablet PO SCH (20:56)
[2019-03-14] MEDS ORDERED: normal saline 500ml IV soln 500 ML IV ONE (21:10)
[2019-03-14] MEDS ORDERED: calcium chloride 100 MG/1 ML inj IV ONE ×2 (21:10→21:11)
[2019-03-15] VITALS (34 sets, daily range): BP systolic 89–127; BP diastolic 42–58
[2019-03-15] MEDS: midazolam 100mg in NS 100ml 100 ML IV PRN ×2 (00:03→10:19)
[2019-03-15] MEDS: NORepinephrine 8mg/ 250ml NS 250 ML IV SCH ×2 (01:43→06:26)
[2019-03-15] MEDS: normal saline 1000ml 1,000 ML IV SCH ×3 (02:31→22:51)
[2019-03-15 02:51] LABS: BASOPHILS % (AUTO) 0 % (0-1); EOSINOPHILS % (AUTO) 0 % (0-6); HEMOGLOBIN 7.3 g/dl (14.0-17.9); LYMPHOCYTES # (AUTO) 0.1 X10'3 (1.1-4.8); LYMPHOCYTES % (AUTO) 1.4 % (21-51); MEAN CORPUSCULAR HGB CONC 34.5 g/dL (33.0-36.5); MEAN PLATELET VOLUME 7.7 FL (7.4-10.4); MONOCYTES # (AUTO) 0.2 X10'3 (0-0.9); MONOCYTES % (AUTO) 2.5 % (2-12); NEUTROPHILS # (AUTO) 6.8 X10'3 (1.8-7.7); NEUTROPHILS % (AUTO) 96.1 % (42-75); PLATELET COUNT 181 X10'3 (140-440); RED BLOOD COUNT 2.44 X10'6 (4.70-6.10); RED CELL DISTRIBUTION WIDTH 15.9 % (11.5-14.5); WHITE BLOOD COUNT 7.1 X10'3 (4.5-11.0)
[2019-03-15 03:00] LABS: HEMATOCRIT 21.2 % (42.0-52.0)
[2019-03-15 03:04] LABS: ALANINE AMINOTRANSFERASE 32 U/L (12-78); ALKALINE PHOSPHATASE 61 IU/L (46-116); ANION GAP 7 (8-16); ASPARTATE AMINO TRANSFERASE 96 U/L (10-37); BILIRUBIN,TOTAL 1.2 MG/DL (0.1-1.0); BLOOD UREA NITROGEN 47 MG/DL (7-18); BUN/CREATININE RATIO 25.1 (5.4-32.0); CALCIUM 7.5 MG/DL (8.5-10.1); CHLORIDE 114 MMOL/L (99-107); CREATININE 1.87 MG/DL (0.60-1.10); GLUCOSE 109 MG/DL (70-104); MAGNESIUM 1.6 MG/DL (1.5-2.4); PHOSPHORUS 3.2 MG/DL (2.3-4.5); POTASSIUM 3.3 MMOL/L (3.5-5.1); SODIUM 146 MMOL/L (135-145); TOTAL CARBON DIOXIDE 25.2 MMOL/L (24-32); TOTAL PROTEIN 4.1 G/DL (6.4-8.2); eGFR 37 ML/MIN
[2019-03-15] MEDS: ipratropium/albuterol 3ml nebule NEB SCH ×6 (03:15→22:46)
[2019-03-15 03:23] LABS: PARTIAL THROMBOPLASTIN TIME 55 SECONDS (22-32)
[2019-03-15 03:30] LABS: ABG BASE EXCESS -5.6 mmol/L (-2.0-3.0); ABG HCO3 18.9 mmol/L (22.0-26.0); ABG OXYGEN SATURATION 95.2 % (95-98); ABG PCO2 (T) 34.7 mmHg (35.0-45.0); ABG PH (T) 7.361 (7.350-7.450); ABG PO2 (T) 90.7 mmHg (83-108); FCOHb 0.2 % (0.5-1.5); FMetHb 0.3 % (0.3-1.12); FO2Hb 94.7 % (94-100); MINUTE VOLUME 12 L/min; PATIENT TEMPERATURE 38.4; PEEP 5 cm H2O; RESPIRATORY RATE 20 b/min; RESPIRATORY RATE (OBSERVED) 21 b/min; TIDAL VOLUME 450 mL; TOTAL HEMOGLOBIN 7.6 G/dl (14.0-17.9)
[2019-03-15] MEDS: acetaminophen 325mg tablet PO PRN (03:43)
[2019-03-15] MEDS: potassium Cl 20mEq/100mL bag 100 ML IV PRN (03:55)
--- NOTE | 2019-03-15 04:16 | NUR ---
patient temp 38.5. cool bath, room temp turned down, loin cloth only, tylenol given per order
[2019-03-15] MEDS: FENTANYL-0.9 % NACL/PF 100 ML IV PRN ×3 (04:48→17:25)
--- NOTE | 2019-03-15 06:30 | NUR ---
Patient in room CICU 2010. I have received report from Raymond PARRA and had the opportunity to ask questions and assume patient care.
[2019-03-15] MEDS: levoTHYROXINE 112mcg tablet PO SCH (07:00)
[2019-03-15] MEDS: levoTHYROXINE 25mcg tablet PO SCH (07:00)
[2019-03-15] MEDS: benztropine 1mg tablet PO SCH ×2 (08:00→20:00)
[2019-03-15] MEDS: OLANZAPINE 5 MG TABLET PO SCH (08:00)
[2019-03-15] MEDS: nicotine 14mg patch - 24hr TD SCH (08:00)
[2019-03-15] MEDS: POTASSIUM BICARB 20meq eff tab 20 MEQ TABLET.EFF PO SCH ×3 (08:00→21:00)
[2019-03-15] MEDS: ASENAPINE 10 MG SL SCH (08:00)
[2019-03-15] MEDS: lactose-reduced food (Ensure Enlive) - 237ml bottle PO SCH ×3 (08:00→18:00)
[2019-03-15] MEDS: clonazePAM 0.5mg tablet PO SCH ×3 (08:00→21:00)
[2019-03-15 08:04] LABS: HEMATOCRIT 23.5 % (42.0-52.0); HEMOGLOBIN 8.2 g/dl (14.0-17.9); MEAN CORPUSCULAR HEMOGLOBIN 30.8 PG (27.0-31.0); MEAN CORPUSCULAR HGB CONC 34.8 g/dL (33.0-36.5); MEAN CORPUSCULAR VOLUME 88.6 FL (78-98); MEAN PLATELET VOLUME 7.3 FL (7.4-10.4); PLATELET COUNT 169 X10'3 (140-440); RED BLOOD COUNT 2.65 X10'6 (4.70-6.10); RED CELL DISTRIBUTION WIDTH 16.2 % (11.5-14.5); WHITE BLOOD COUNT 8.1 X10'3 (4.5-11.0)
[2019-03-15] MEDS: fluconazole-Diflucan 200mg/NS 100 ML IV SCH (09:23)
[2019-03-15] MEDS: piperacillin/tazo 3.375gm/50ml 50 ML IV SCH ×2 (09:23→16:00)
--- NOTE | 2019-03-15 10:50 | NUR ---
called Dr. Katz regarding the lovenox order, he stated to go ahead and give it
[2019-03-15] MEDS: enoxaparin 30mg/0.3ml syringe SQ SCH ×2 (11:01→20:00)
--- NOTE | 2019-03-15 11:15 | NUR ---
Dr. Katz by to see patient up dated him on status and gtts that are running, stated that all po meds have been held, asked that i put in an NPO order as patient should not have anything po with his post op state. Stated patient should be going back to surgery around 1400. no other new orders at this time
--- NOTE | 2019-03-15 13:00 | NUR ---
took patients yellow ring off and placed in a sealed bag in the chart
[2019-03-15 13:55] LABS: HEMATOCRIT 22.9 % (42.0-52.0); MEAN CORPUSCULAR HGB CONC 34.7 g/dL (33.0-36.5); MEAN CORPUSCULAR VOLUME 89.2 FL (78-98); MEAN PLATELET VOLUME 7.4 FL (7.4-10.4); PLATELET COUNT 156 X10'3 (140-440); RED BLOOD COUNT 2.57 X10'6 (4.70-6.10); RED CELL DISTRIBUTION WIDTH 16.1 % (11.5-14.5); WHITE BLOOD COUNT 6.8 X10'3 (4.5-11.0)
[2019-03-15] MEDS: mineral oil/petrolatum ophthal oint EACHEYE SCH ×2 (14:00→20:51)
--- NOTE | 2019-03-15 14:15 | NUR ---
Patient to OR accompanied by two TRANSIT PLANNING MANAGER's, one OR tech and the anesthesiologist. Gave report to TRANSIT PLANNING MANAGER
[2019-03-15] MEDS ORDERED: NORepinephrine 8 MG in NS 250 ML BAG (32 mcg/ml) IV ONE (14:16)
[2019-03-15] MEDS ORDERED: sevoflurane 250ml liquid IH ONE (14:16)
[2019-03-15] MEDS ORDERED: rocuronium 10mg/ml inj IV ONE ×2 (14:28→16:06)
[2019-03-15] MEDS ORDERED: albumin (Human) 5% 250ml 250 ML IV ONE ×2 (14:48→16:06)
--- NOTE | 2019-03-15 14:53 | NUR ---
Reassessment: Per recent surgeon's note patient is s/p emergent exploratory lap, pt found to have sigmoid colon perforation and intra-abdominal contamination of feces; pt back to OR today for left colectomy, colostomy, gastrojejunostomy tube and wound vac placement. Pt intubated and sedated. TF recommendations below for when he is able to start nutrition through GJ-tube. Rec: 1. If TF, when okay by surgeon to use GJ-tube, recommend Vital High Protein at 70 ml/hr while intubated. 2. If TF, daily weights, prealbumin q Thursday/ Addendum: 03/15/19 at [address] Amended: Links added.
--- NOTE | 2019-03-15 18:23 | NUR ---
Patient in room CICU 2010. I have received report from david laguerre and had the opportunity to ask questions and assume patient care.
--- NOTE | 2019-03-15 18:32 | NUR ---
Problems reprioritized. Patient report given, questions answered & plan of care reviewed with Tracey PARRA.
--- NOTE | 2019-03-15 19:00 | NUR ---
pt is intubated and sedated. pt is receiving 150 mcg of fentanyl and 5 mg versed. pt opens his eye to pain. levophed is infusing at 0.03 mcg. et tube is 24 at the teeth with anchorfast in place. lung sounds are clear throughout. pt has scant amount of clear sputum. ng tube is to suction with small amount of dark green output. bowel sounds are present and normoactive in 3 quadrants. bowel sounds absent in LLQ. new colostomy present to [facility]. colostomy is brick red and is having scant amount of brown stool output, 2 piece colostomy bag in place. g-tube is LUQ, insertion site has a small about of bleeding noted. midline abdominal incision to wound vac. wound vac at 125 continuous suction with scant sanguinous output. quiroz patent and draining. left lower extremity has not pedal or posterior tibial pulse md aware. right lower extremity pedal pulse is present via doppler. left great toe is black. ecchymosis present to bilateral upper extremities. heels, elbows, coccyx intact blanchable, free from breakdown. vital signs stable. no s/s of distress will continue to monitor.
[2019-03-15] MEDS: lactobacillus rhamnosus 10,000 MMU CELLS/CAPSULE PO SCH (20:00)
--- NOTE | 2019-03-15 20:00 | NUR ---
po medications held per misc nursing not. heparin held per sub arc operator nubia because pt is post op
[2019-03-15 20:26] LABS: HEMATOCRIT 22.8 % (42.0-52.0); HEMOGLOBIN 7.8 g/dl (14.0-17.9); MEAN CORPUSCULAR HGB CONC 34.3 g/dL (33.0-36.5); MEAN CORPUSCULAR VOLUME 90.4 FL (78-98); MEAN PLATELET VOLUME 7.2 FL (7.4-10.4); PLATELET COUNT 138 X10'3 (140-440); RED BLOOD COUNT 2.53 X10'6 (4.70-6.10); RED CELL DISTRIBUTION WIDTH 16.2 % (11.5-14.5); WHITE BLOOD COUNT 5.7 X10'3 (4.5-11.0)
[2019-03-15] MEDS: lamoTRIgine 100mg tablet PO SCH (21:00)
[2019-03-15] MEDS: lamoTRIgine 25mg tablet PO SCH (21:00)
[2019-03-15] MEDS: atorvastatin 20mg tablet PO SCH (21:00)
[2019-03-15] MEDS: amitriptyline 25mg tablet PO SCH (21:00)
[2019-03-16] VITALS (24 sets, daily range): BP systolic 83–136; BP diastolic 41–60
[2019-03-16] MEDS: FENTANYL-0.9 % NACL/PF 100 ML IV PRN ×2 (00:32→08:42)
[2019-03-16] MEDS: piperacillin/tazo 3.375gm/50ml 50 ML IV SCH ×4 (00:59→23:38)
[2019-03-16] MEDS: NORepinephrine 8mg/ 250ml NS 250 ML IV SCH ×4 (01:02→23:39)
[2019-03-16] MEDS: mineral oil/petrolatum ophthal oint EACHEYE SCH ×4 (02:29→20:07)
[2019-03-16] MEDS: ipratropium/albuterol 3ml nebule NEB SCH ×6 (02:41→23:10)
[2019-03-16 02:48] LABS: BASOPHILS % (AUTO) 0.2 % (0-1); EOSINOPHILS % (AUTO) 0 % (0-6); HEMATOCRIT 22.2 % (42.0-52.0); HEMOGLOBIN 7.6 g/dl (14.0-17.9); LYMPHOCYTES # (AUTO) 0.1 X10'3 (1.1-4.8); MEAN CORPUSCULAR HEMOGLOBIN 30.7 PG (27.0-31.0); MEAN CORPUSCULAR HGB CONC 34.2 g/dL (33.0-36.5); MEAN CORPUSCULAR VOLUME 89.8 FL (78-98); MEAN PLATELET VOLUME 7.5 FL (7.4-10.4); MONOCYTES # (AUTO) 0.1 X10'3 (0-0.9); MONOCYTES % (AUTO) 1.9 % (2-12); NEUTROPHILS # (AUTO) 6.2 X10'3 (1.8-7.7); NEUTROPHILS % (AUTO) 96.9 % (42-75); PLATELET COUNT 131 X10'3 (140-440); RED BLOOD COUNT 2.47 X10'6 (4.70-6.10); RED CELL DISTRIBUTION WIDTH 16.2 % (11.5-14.5); WHITE BLOOD COUNT 6.4 X10'3 (4.5-11.0)
[2019-03-16 02:58] LABS: PARTIAL THROMBOPLASTIN TIME 61 SECONDS (22-32)
[2019-03-16 03:00] LABS: ALANINE AMINOTRANSFERASE 49 U/L (12-78); ALBUMIN 1.8 G/DL (3.4-5.0); ALBUMIN/GLOBULIN RATIO 0.9 (1.1-1.5); ALKALINE PHOSPHATASE 68 IU/L (46-116); ANION GAP 9 (8-16); ASPARTATE AMINO TRANSFERASE 149 U/L (10-37); BLOOD UREA NITROGEN 42 MG/DL (7-18); BUN/CREATININE RATIO 23.9 (5.4-32.0); CALCIUM 7.3 MG/DL (8.5-10.1); CHLORIDE 120 MMOL/L (99-107); CREATININE 1.76 MG/DL (0.60-1.10); GLUCOSE 92 MG/DL (70-104); MAGNESIUM 1.8 MG/DL (1.5-2.4); PHOSPHORUS 3.2 MG/DL (2.3-4.5); POTASSIUM 3.5 MMOL/L (3.5-5.1); SODIUM 151 MMOL/L (135-145); TOTAL CARBON DIOXIDE 21.9 MMOL/L (24-32); TOTAL PROTEIN 3.9 G/DL (6.4-8.2); eGFR 40 ML/MIN
[2019-03-16 03:00] LABS: ABG BASE EXCESS -6.8 mmol/L (-2.0-3.0); ABG HCO3 18.1 mmol/L (22.0-26.0); ABG OXYGEN SATURATION 96.1 % (95-98); ABG PCO2 (T) 34.9 mmHg (35.0-45.0); ABG PH (T) 7.337 (7.350-7.450); ABG PO2 (T) 92.1 mmHg (83-108); FCOHb 0.2 % (0.5-1.5); FMetHb 0.1 % (0.3-1.12); FO2Hb 95.8 % (94-100); MINUTE VOLUME 9 L/min; PATIENT TEMPERATURE 37.7; PEEP 5 cm H2O; RESPIRATORY RATE 18 b/min; RESPIRATORY RATE (OBSERVED) 18 b/min; TIDAL VOLUME 450 mL; TOTAL HEMOGLOBIN 8.1 G/dl (14.0-17.9)
[2019-03-16] MEDS: midazolam 100mg in NS 100ml 100 ML IV PRN (05:53)
[2019-03-16] MEDS: levoTHYROXINE 112mcg tablet PO SCH (07:15)
[2019-03-16] MEDS: enoxaparin 30mg/0.3ml syringe SQ SCH ×2 (07:15→20:08)
[2019-03-16] MEDS: levoTHYROXINE 25mcg tablet PO SCH (07:15)
[2019-03-16] MEDS: fluconazole-Diflucan 200mg/NS 100 ML IV SCH (07:16)
[2019-03-16] MEDS: clonazePAM 0.5mg tablet PO SCH (07:17)
[2019-03-16] MEDS: nicotine 14mg patch - 24hr TD SCH (07:20)
[2019-03-16] MEDS: POTASSIUM BICARB 20meq eff tab 20 MEQ TABLET.EFF PO SCH (07:21)
[2019-03-16] MEDS: OLANZAPINE 5 MG TABLET PO SCH (07:21)
[2019-03-16] MEDS: lactobacillus rhamnosus 10,000 MMU CELLS/CAPSULE PO SCH (07:21)
[2019-03-16] MEDS: benztropine 1mg tablet PO SCH (07:21)
[2019-03-16] MEDS: lactose-reduced food (Ensure Enlive) - 237ml bottle PO SCH (08:00)
[2019-03-16] MEDS: ASENAPINE 10 MG SL SCH (08:00)
[2019-03-16] MEDS: normal saline 1000ml 1,000 ML IV SCH ×2 (08:03→15:20)
[2019-03-16] MEDS ORDERED: normal saline 1000ml 1,000 ML IV ONE (11:00)
[2019-03-16 11:05] LABS: HEMATOCRIT 23.2 % (42.0-52.0); HEMOGLOBIN 7.9 g/dl (14.0-17.9); MEAN CORPUSCULAR HEMOGLOBIN 30.7 PG (27.0-31.0); MEAN CORPUSCULAR VOLUME 90.3 FL (78-98); MEAN PLATELET VOLUME 7.4 FL (7.4-10.4); PLATELET COUNT 142 X10'3 (140-440); RED BLOOD COUNT 2.56 X10'6 (4.70-6.10); RED CELL DISTRIBUTION WIDTH 16.7 % (11.5-14.5); WHITE BLOOD COUNT 8.5 X10'3 (4.5-11.0)
--- NOTE | 2019-03-16 11:21 | NUR ---
TF Consult: GJTF to start today per surgeon. Colostomy minimal output so far post-op today per RN. TF recs below given pt needs. MAP 66 currently previously 79 w/ goal MAP of 60 minimum per gift shop manager. Will monitor for EN tolerance. Reassessment: Per recent surgeon's note patient is s/p emergent exploratory lap, pt found to have sigmoid colon perforation and intra-abdominal contamination of feces; pt back to OR today for left colectomy, colostomy, gastrojejunostomy tube and wound vac placement. Pt intubated and sedated. TF recommendations below for when he is able to start nutrition through GJ-tube. Rec: 1. GJTF per MD using Vital High Protein at 90ml/hr goal; to provide 2280ml fluid, 1847ml free water, 2280kcals, and 200g protein. Initiate at 20ml/hr and advance 20ml Q8 to goal as tolerated. 2. water flush 200ml Q4 3. daily weights, prealbumin q Thursday/ 4. monitor for EN tolerance Addendum: 03/16/19 at [address] Amended: Links added.
[2019-03-16] MEDS ORDERED: potassium Cl 20 mEq SR tablet JT PRN ×2 (11:35)
[2019-03-16] MEDS: lactose-reduced food (Ensure Enlive) - 237ml bottle JT SCH ×2 (13:00→14:05)
[2019-03-16] MEDS: POTASSIUM BICARB 20meq eff tab 20 MEQ TABLET.EFF JT SCH ×2 (13:36→20:18)
--- NOTE | 2019-03-16 14:00 | NUR ---
called Dr. Katz and confirmed TF orders. Jevity 1.2 at 30 ml/hr through the J port of the GJ tube
[2019-03-16] MEDS: clonazePAM 0.5mg tablet JT SCH ×2 (14:32→20:18)
[2019-03-16 15:23] LABS: HEMATOCRIT 23.3 % (42.0-52.0); HEMOGLOBIN 7.9 g/dl (14.0-17.9); MEAN CORPUSCULAR HEMOGLOBIN 30.8 PG (27.0-31.0); MEAN CORPUSCULAR HGB CONC 34.2 g/dL (33.0-36.5); MEAN CORPUSCULAR VOLUME 90.2 FL (78-98); MEAN PLATELET VOLUME 7.6 FL (7.4-10.4); PLATELET COUNT 138 X10'3 (140-440); RED BLOOD COUNT 2.58 X10'6 (4.70-6.10); RED CELL DISTRIBUTION WIDTH 16.6 % (11.5-14.5)
--- NOTE | 2019-03-16 16:31 | NUR ---
Dr. Katz came to bedside to assess stoma. Flush J tube with 30ml q4h per Dr. Katz.
[2019-03-16] MEDS: acetaminophen 325mg tablet JT PRN ×2 (16:45→20:21)
[2019-03-16] MEDS: lactobacillus rhamnosus 10,000 MMU CELLS/CAPSULE JT SCH (20:08)
[2019-03-16] MEDS: benztropine 1mg tablet JT SCH (20:08)
[2019-03-16] MEDS: amitriptyline 25mg tablet JT SCH (20:18)
[2019-03-16] MEDS: lamoTRIgine 100mg tablet JT SCH (20:19)
[2019-03-16] MEDS: lamoTRIgine 25mg tablet JT SCH (20:19)
[2019-03-16 20:20] LABS: HEMATOCRIT 22.9 % (42.0-52.0); HEMOGLOBIN 7.7 g/dl (14.0-17.9); MEAN CORPUSCULAR HEMOGLOBIN 30.6 PG (27.0-31.0); MEAN CORPUSCULAR HGB CONC 33.8 g/dL (33.0-36.5); MEAN CORPUSCULAR VOLUME 90.4 FL (78-98); MEAN PLATELET VOLUME 7.9 FL (7.4-10.4); PLATELET COUNT 136 X10'3 (140-440); RED BLOOD COUNT 2.53 X10'6 (4.70-6.10); RED CELL DISTRIBUTION WIDTH 16.6 % (11.5-14.5); WHITE BLOOD COUNT 7.9 X10'3 (4.5-11.0)
[2019-03-16] MEDS: atorvastatin 20mg tablet JT SCH (20:20)
[2019-03-17] VITALS (24 sets, daily range): BP systolic 76–123; BP diastolic 41–77
[2019-03-17] MEDS: ipratropium/albuterol 3ml nebule NEB SCH ×6 (02:33→23:05)
[2019-03-17 02:35] LABS: ABG BASE EXCESS -5.6 mmol/L (-2.0-3.0); ABG HCO3 18.6 mmol/L (22.0-26.0); ABG OXYGEN SATURATION 90.4 % (95-98); ABG PCO2 (T) 32.4 mmHg (35.0-45.0); ABG PO2 (T) 63.3 mmHg (83-108); FMetHb 0.1 % (0.3-1.12); FO2Hb 90.3 % (94-100); MINUTE VOLUME 17 L/min; PEEP 5 cm H2O; RESPIRATORY RATE 18 b/min; RESPIRATORY RATE (OBSERVED) 31 b/min; TIDAL VOLUME 450 mL; TOTAL HEMOGLOBIN 8.5 G/dl (14.0-17.9)
[2019-03-17] MEDS: mineral oil/petrolatum ophthal oint EACHEYE SCH ×4 (02:38→21:56)
[2019-03-17] MEDS: normal saline 1000ml 1,000 ML IV SCH ×3 (02:39→21:57)
[2019-03-17 02:44] LABS: BASOPHILS % (AUTO) 0.1 % (0-1); EOSINOPHILS % (AUTO) 0 % (0-6); HEMATOCRIT 22.9 % (42.0-52.0); LYMPHOCYTES # (AUTO) 0.2 X10'3 (1.1-4.8); LYMPHOCYTES % (AUTO) 2.4 % (21-51); MEAN CORPUSCULAR HEMOGLOBIN 31.3 PG (27.0-31.0); MEAN CORPUSCULAR HGB CONC 34.8 g/dL (33.0-36.5); MEAN CORPUSCULAR VOLUME 90.1 FL (78-98); MEAN PLATELET VOLUME 7.8 FL (7.4-10.4); MONOCYTES # (AUTO) 0.3 X10'3 (0-0.9); MONOCYTES % (AUTO) 3.9 % (2-12); NEUTROPHILS # (AUTO) 7.7 X10'3 (1.8-7.7); NEUTROPHILS % (AUTO) 93.6 % (42-75); PLATELET COUNT 133 X10'3 (140-440); RED BLOOD COUNT 2.54 X10'6 (4.70-6.10); RED CELL DISTRIBUTION WIDTH 16.7 % (11.5-14.5); WHITE BLOOD COUNT 8.2 X10'3 (4.5-11.0)
[2019-03-17 02:54] LABS: PARTIAL THROMBOPLASTIN TIME 67 SECONDS (22-32)
[2019-03-17 03:01] LABS: ALANINE AMINOTRANSFERASE 53 U/L (12-78); ALBUMIN 1.4 G/DL (3.4-5.0); ALBUMIN/GLOBULIN RATIO 0.5 (1.1-1.5); ALKALINE PHOSPHATASE 84 IU/L (46-116); ANION GAP 12 (8-16); ASPARTATE AMINO TRANSFERASE 184 U/L (10-37); BILIRUBIN,TOTAL 2.5 MG/DL (0.1-1.0); BLOOD UREA NITROGEN 38 MG/DL (7-18); BUN/CREATININE RATIO 21.2 (5.4-32.0); CALCIUM 7.1 MG/DL (8.5-10.1); CHLORIDE 120 MMOL/L (99-107); CREATININE 1.79 MG/DL (0.60-1.10); GLUCOSE 117 MG/DL (70-104); MAGNESIUM 1.8 MG/DL (1.5-2.4); PHOSPHORUS 2.7 MG/DL (2.3-4.5); POTASSIUM 3.5 MMOL/L (3.5-5.1); SODIUM 152 MMOL/L (135-145); TOTAL CARBON DIOXIDE 20.2 MMOL/L (24-32); eGFR 39 ML/MIN
[2019-03-17] MEDS: levoTHYROXINE 112mcg tablet JT SCH (07:00)
[2019-03-17] MEDS: ASENAPINE 10 MG SL SCH (08:00)
[2019-03-17] MEDS: lactose-reduced food (Ensure Enlive) - 237ml bottle JT SCH ×3 (08:00→18:00)
[2019-03-17] MEDS: levoTHYROXINE 25mcg tablet JT SCH (08:00)
[2019-03-17] MEDS: benztropine 1mg tablet JT SCH ×2 (08:03→21:52)
[2019-03-17] MEDS: OLANZapine 5mg rapidly disint. tablet PO SCH (08:03)
[2019-03-17] MEDS: clonazePAM 0.5mg tablet JT SCH ×3 (08:04→21:55)
[2019-03-17] MEDS: lactobacillus rhamnosus 10,000 MMU CELLS/CAPSULE JT SCH ×2 (08:04→21:52)
[2019-03-17] MEDS: POTASSIUM BICARB 20meq eff tab 20 MEQ TABLET.EFF JT SCH ×3 (08:04→21:54)
[2019-03-17] MEDS: piperacillin/tazo 3.375gm/50ml 50 ML IV SCH ×2 (08:04→16:00)
[2019-03-17] MEDS: fluconazole-Diflucan 200mg/NS 100 ML IV SCH (08:05)
[2019-03-17] MEDS: enoxaparin 30mg/0.3ml syringe SQ SCH ×2 (08:05→21:52)
[2019-03-17 09:04] LABS: BASOPHILS % (AUTO) 0 % (0-1); EOSINOPHILS % (AUTO) 0 % (0-6); HEMATOCRIT 22.6 % (42.0-52.0); HEMOGLOBIN 7.8 g/dl (14.0-17.9); LYMPHOCYTES # (AUTO) 0.2 X10'3 (1.1-4.8); LYMPHOCYTES % (AUTO) 2.2 % (21-51); MEAN CORPUSCULAR HEMOGLOBIN 30.9 PG (27.0-31.0); MEAN CORPUSCULAR HGB CONC 34.5 g/dL (33.0-36.5); MEAN CORPUSCULAR VOLUME 89.7 FL (78-98); MEAN PLATELET VOLUME 7.6 FL (7.4-10.4); MONOCYTES # (AUTO) 0.3 X10'3 (0-0.9); NEUTROPHILS # (AUTO) 7.7 X10'3 (1.8-7.7); NEUTROPHILS % (AUTO) 93.8 % (42-75); PLATELET COUNT 123 X10'3 (140-440); RED BLOOD COUNT 2.52 X10'6 (4.70-6.10); RED CELL DISTRIBUTION WIDTH 16.5 % (11.5-14.5); WHITE BLOOD COUNT 8.2 X10'3 (4.5-11.0)
[2019-03-17] MEDS: nicotine 14mg patch - 24hr TD SCH (09:46)
[2019-03-17] MEDS: NORepinephrine 8mg/ 250ml NS 250 ML IV SCH ×3 (10:27→22:51)
[2019-03-17] MEDS ORDERED: normal saline 1000ml 1,000 ML IV ONE ×4 (10:50→18:25)
[2019-03-17] MEDS ORDERED: polyethylene glycol 3350 17gm powd pack PO SCH (12:00)
--- NOTE | 2019-03-17 12:22 | NUR ---
TF Consult: Pt GJTF changed to Jevity at 30ml/hr and to stay at 30 for 24 hours via J port per surgeon. Per RN at rounds pt had 500ml mouth emesis w/ NG changed to suction and 3.5L removed in 15 minutes plus emesis on floor so likely at least 4L gastric output this AM. JTF okay to be changed to Vital High Protein today per surgeon w/ water flushes changed to 200ml Q6 per surgeon as well. Pt Na 152 and to receive IV fluid bolus per MD for hydration needs. 20ml colostomy output today pending KUB and following CT if indicated per MD. Pt receiving blood for retroperitoneal and psoas hematoma per MD. Pt would likely benefit from opioid antagonist to aid in gastric motility post-op per surgeon approval. TPN recs below given pt has central line and EN intolerance thus far post-op w/ wound healing needs in case prolonged EN intolerance and IF PN per MD. Custom PN not available at this time so unable to meet optimal protein needs without overfeeding. Will continue to monitor. Rec: 1. Continuous GJTF via J port at 30ml/hr using Vital High Protein per surgeon; to provide 720ml fluid, 720kcals, 605ml water, and 63g protein. Maintain at 30ml/hr and advance per surgeon approval 20ml Q8 per recs below. 2. IF to advance; GJTF per surgeon using Vital High Protein at 90ml/hr goal; to provide 2280ml fluid, 1847ml free water, 2280kcals, and 200g protein. 2. water flush 200ml Q6 per surgeon 3. daily weights, prealbumin q Thursday/ 4. opioid antagonist per MD approval 5. IF TPN; Clinimix E 07/26 at 110ml/hr goal w/ 100ml separate 20% intralipids infusions to run at 8.3ml/hr for 12 hours daily. Addendum: 03/17/19 at [address] Amended: Links added.
[2019-03-17] MEDS: acetaminophen 325mg tablet JT PRN (12:46)
--- NOTE | 2019-03-17 13:21 | NUR ---
Meds and Water Flushes pushed down the J-Tube are being sucked out of the NG tube. Dr. Katz was called and informed. He viewed the KUB taken earlier in the shift, and confirmed placement of both the NG and the GJ Tubes. He stated to Push 30ml of water down the G-Tube and see if the NG tube suctioned out that fluid as well. 30ml of water was pushed as ordered and the NG tube suctioned it out immediately. Dr. Katz ordered that the Meds and Water be flushed, and the NG tube be turned off during each med pass, for 1 hour, then turn back on to low-intermittent suction. G-tube has also been hooked up to a bag for gravity draining, per his order. Dr. Katz will re-evaluate patient tomorrow AM.
[2019-03-17] MEDS: magnesium hydroxide 30ml (MOM) UD suspension JT SCH ×2 (14:00→20:00)
[2019-03-17] MEDS: FENTANYL-0.9 % NACL/PF 100 ML IV PRN (14:17)
[2019-03-17] MEDS ORDERED: acetaminophen 650mg rectal suppository RC PRN (14:20)
[2019-03-17] MEDS: acetaminophen 1,000mg/100ml IV 100 ML IV SCH ×2 (15:39→20:00)
--- NOTE | 2019-03-17 18:27 | NUR ---
Patient had an elevated Temp 39.0, Hypotensive 80s/40s, Tachycardic 120s, Tachypneic high 30s. Dr. Ritter just came in and saw patient's status. He ordered Continual boluses of 1L NS until CVP is 11 or higher. He also ordered 1L of 5% Albumin.
[2019-03-17] MEDS: albumin (Human) 5% 250ml 250 ML IV SCH ×4 (18:54→21:57)
--- NOTE | 2019-03-17 19:18 | NUR ---
Problems reprioritized. Patient report given, questions answered & plan of care reviewed with Zuly PARRA.
[2019-03-17 21:00] LABS: BASOPHILS % (AUTO) 0.1 % (0-1); EOSINOPHILS % (AUTO) 0.1 % (0-6); LYMPHOCYTES # (AUTO) 0.3 X10'3 (1.1-4.8); LYMPHOCYTES % (AUTO) 3.2 % (21-51); MEAN CORPUSCULAR HEMOGLOBIN 30.7 PG (27.0-31.0); MEAN CORPUSCULAR HGB CONC 34.1 g/dL (33.0-36.5); MEAN PLATELET VOLUME 8.2 FL (7.4-10.4); MONOCYTES # (AUTO) 0.3 X10'3 (0-0.9); MONOCYTES % (AUTO) 3.2 % (2-12); NEUTROPHILS # (AUTO) 9.4 X10'3 (1.8-7.7); NEUTROPHILS % (AUTO) 93.4 % (42-75); PLATELET COUNT 98 X10'3 (140-440); RED BLOOD COUNT 2.25 X10'6 (4.70-6.10); RED CELL DISTRIBUTION WIDTH 16.8 % (11.5-14.5); WHITE BLOOD COUNT 10.1 X10'3 (4.5-11.0)
[2019-03-17 21:09] LABS: HEMATOCRIT 20.2 % (42.0-52.0)
[2019-03-17 21:10] LABS: HEMOGLOBIN 6.9 g/dl (14.0-17.9)
[2019-03-17] MEDS: lamoTRIgine 25mg tablet JT SCH (21:54)
[2019-03-17] MEDS: lamoTRIgine 100mg tablet JT SCH (21:54)
[2019-03-17] MEDS: amitriptyline 25mg tablet JT SCH (21:55)
[2019-03-17] MEDS: atorvastatin 20mg tablet JT SCH (21:55)
[2019-03-17 22:25] LABS: TOTAL CELLS COUNTED 100
[2019-03-17 22:26] LABS: ANISOCYTOSIS 1+; PLATELET ESTIMATE DECREASED
[2019-03-17 22:27] LABS: POLYCHROMASIA FEW; TOXIC GRANULATION 4+
[2019-03-17] MEDS: midazolam 100mg in NS 100ml 100 ML IV PRN (23:07)
[2019-03-18] VITALS (32 sets, daily range): BP systolic 90–155; BP diastolic 41–90
[2019-03-18] MEDS: piperacillin/tazo 3.375gm/50ml 50 ML IV SCH ×3 (00:25→16:04)
[2019-03-18] MEDS: FENTANYL-0.9 % NACL/PF 100 ML IV PRN (00:25)
[2019-03-18] MEDS: acetaminophen 1,000mg/100ml IV 100 ML IV SCH ×3 (02:00→13:10)
[2019-03-18] MEDS: mineral oil/petrolatum ophthal oint EACHEYE SCH ×4 (02:22→20:37)
[2019-03-18] MEDS: magnesium hydroxide 30ml (MOM) UD suspension JT SCH ×2 (02:24→08:42)
[2019-03-18] MEDS: ipratropium/albuterol 3ml nebule NEB SCH ×6 (02:49→23:01)
[2019-03-18 03:01] LABS: ABG BASE EXCESS -6.9 mmol/L (-2.0-3.0); ABG HCO3 17.4 mmol/L (22.0-26.0); ABG OXYGEN SATURATION 92.2 % (95-98); ABG PCO2 (T) 30.2 mmHg (35.0-45.0); ABG PO2 (T) 70.6 mmHg (83-108); FCOHb 0.1 % (0.5-1.5); FMetHb 0.1 % (0.3-1.12); MINUTE VOLUME 12 L/min; PATIENT TEMPERATURE 37.4; PEEP 5 cm H2O; RESPIRATORY RATE 18 b/min; RESPIRATORY RATE (OBSERVED) 27 b/min; TIDAL VOLUME 450 mL; TOTAL HEMOGLOBIN 7.3 G/dl (14.0-17.9)
[2019-03-18 03:42] LABS: BASOPHILS % (AUTO) 0.1 % (0-1); EOSINOPHILS % (AUTO) 0 % (0-6); LYMPHOCYTES # (AUTO) 0.4 X10'3 (1.1-4.8); LYMPHOCYTES % (AUTO) 5.9 % (21-51); MEAN CORPUSCULAR HEMOGLOBIN 30.1 PG (27.0-31.0); MEAN CORPUSCULAR HGB CONC 33.3 g/dL (33.0-36.5); MEAN CORPUSCULAR VOLUME 90.4 FL (78-98); MEAN PLATELET VOLUME 8.3 FL (7.4-10.4); MONOCYTES # (AUTO) 0.2 X10'3 (0-0.9); NEUTROPHILS # (AUTO) 6.1 X10'3 (1.8-7.7); PLATELET COUNT 81 X10'3 (140-440); RED BLOOD COUNT 2.33 X10'6 (4.70-6.10); RED CELL DISTRIBUTION WIDTH 16.4 % (11.5-14.5); WHITE BLOOD COUNT 6.7 X10'3 (4.5-11.0)
[2019-03-18 03:53] LABS: PARTIAL THROMBOPLASTIN TIME 77 SECONDS (22-32)
[2019-03-18 04:00] LABS: ALANINE AMINOTRANSFERASE 39 U/L (12-78); ALBUMIN 1.7 G/DL (3.4-5.0); ALBUMIN/GLOBULIN RATIO 0.8 (1.1-1.5); ALKALINE PHOSPHATASE 58 IU/L (46-116); ANION GAP 11 (8-16); ASPARTATE AMINO TRANSFERASE 141 U/L (10-37); BILIRUBIN,TOTAL 2.7 MG/DL (0.1-1.0); BLOOD UREA NITROGEN 41 MG/DL (7-18); BUN/CREATININE RATIO 22.5 (5.4-32.0); CALCIUM 6.7 MG/DL (8.5-10.1); CHLORIDE 126 MMOL/L (99-107); CREATININE 1.82 MG/DL (0.60-1.10); GLUCOSE 105 MG/DL (70-104); MAGNESIUM 1.7 MG/DL (1.5-2.4); POTASSIUM 3.2 MMOL/L (3.5-5.1); TOTAL PROTEIN 3.9 G/DL (6.4-8.2); eGFR 38 ML/MIN
[2019-03-18 04:11] LABS: SODIUM 157 MMOL/L (135-145)
[2019-03-18] MEDS: enoxaparin 30mg/0.3ml syringe SQ SCH (08:00)
[2019-03-18] MEDS: ASENAPINE 10 MG SL SCH (08:00)
[2019-03-18] MEDS: lactose-reduced food (Ensure Enlive) - 237ml bottle JT SCH (08:00)
[2019-03-18 08:05] LABS: ANISOCYTOSIS 1+; PLATELET ESTIMATE DECREASED; TOTAL CELLS COUNTED 100
[2019-03-18 08:06] LABS: POLYCHROMASIA FEW
[2019-03-18] MEDS: levoTHYROXINE 112mcg tablet JT SCH (08:26)
[2019-03-18] MEDS: POTASSIUM BICARB 20meq eff tab 20 MEQ TABLET.EFF JT SCH (08:26)
[2019-03-18] MEDS: levoTHYROXINE 25mcg tablet JT SCH (08:26)
[2019-03-18] MEDS: lactobacillus rhamnosus 10,000 MMU CELLS/CAPSULE JT SCH (08:27)
[2019-03-18] MEDS: OLANZapine 5mg rapidly disint. tablet PO SCH (08:27)
[2019-03-18] MEDS: benztropine 1mg tablet JT SCH (08:27)
[2019-03-18] MEDS: clonazePAM 0.5mg tablet JT SCH ×2 (08:27→13:00)
[2019-03-18] MEDS: fluconazole-Diflucan 200mg/NS 100 ML IV SCH (08:28)
[2019-03-18] MEDS: nicotine 14mg patch - 24hr TD SCH (08:31)
[2019-03-18 08:50] LABS: HEMATOCRIT 22.6 % (42.0-52.0); HEMOGLOBIN 7.5 g/dl (14.0-17.9); MEAN CORPUSCULAR HEMOGLOBIN 29.9 PG (27.0-31.0); MEAN CORPUSCULAR HGB CONC 33.3 g/dL (33.0-36.5); MEAN CORPUSCULAR VOLUME 89.8 FL (78-98); MEAN PLATELET VOLUME 8.4 FL (7.4-10.4); PLATELET COUNT 82 X10'3 (140-440); RED BLOOD COUNT 2.52 X10'6 (4.70-6.10); RED CELL DISTRIBUTION WIDTH 16.9 % (11.5-14.5); WHITE BLOOD COUNT 5.9 X10'3 (4.5-11.0)
[2019-03-18] MEDS: dextrose 5%-1/2 normal saline 1,000 ML IV SCH ×2 (11:00→21:10)
--- NOTE | 2019-03-18 11:15 | NUR ---
UNABLE TO LISTEN TO BREATH SOUNDS. FIDEL CURRENTLY DOING STERILE WOUND CARE ON CHEST Addendum: 03/18/19 at 1116 by Walter Brown RT Amended: Links added.
--- NOTE | 2019-03-18 11:58 | NUR ---
TPN consult, patient is not tolerating Jejunal tube feedings bedside RN reports tube feeding and medication coming back up through J-port. In view of intolerance to tube feedings, poor nutrition for more than seven days and expected to not meet needs through enteral recommend TPN to meet needs. Sodium is elevated at 157, consider D5% d/w bedside RN, bedside RN discussed with surgeon and RD discussed TPN with surgeon also. Recommend to also discontinue 200 ml water flush into J-port and consider water flushes for patency, water flushes over 150 ml not recommended into Jejunum. 7,200 ml were aspirated from G-tube yesterday. Noted that patient is receiving Fentanyl, consider opiate-antagonist agonist to relieve opiate induced constipation and improve gastric motility. Consider continuing jejunal feedings when gastric output is improved. Noted that ensure enlive is in MAR, recommend to bedside RN to discontinue as it is not needed and not appropriate into the jejunum. Discussed TPN recommendations with pharmacy, patient has central line. Noted that colostomy output very little, about 20 ml so far with small plug this morning per RN. Will continue to follow. Recommend: 1. Discontinue jejunal tube feedings in view of poor tolerance. Recommend to continue jejunal feedings when gastric output is improved, consider gastric opiate agonist antagonist in view of fentanyl to improve gastric motility. When OK by surgeon to resume jejunal feedings recommend: Continuous GJTF through J port starting at 30 ml/hr using Vital High Protein and advance as tolerated to goal rate 90ml/hr goal; to provide 2280ml fluid, 1847ml free water, 2280kcals, and 200g protein. 2. when receiving jejunal feedings recommend additional water flush 150 ml q 3 hours 3. daily weights, prealbumin q Thursday/ 4. Consider opioid agonist antagonist 5. 2:1 TPN to run continuously using Clinimix E 5/20 at 110ml/hr goal with separate 20% intralipids at 100ml at 8 ml/hr for 12 hours daily. TPN will provide total volume of 2640 ml, 2515 cals, 132 gm protein, and 3.5 mg/kg/min CHO loading. Addendum: 03/18/19 at [address] Amended: Links added.
[2019-03-18] MEDS ORDERED: magnesium Cl slow-release 64mg tablet PO PRN (12:05)
[2019-03-18] MEDS ORDERED: magnesium 4gm in 100ml NS 100 ML IV PRN (12:05)
[2019-03-18] MEDS ORDERED: magnesium 2GM in 50ml NS 50 ML IV PRN (12:05)
[2019-03-18] MEDS ORDERED: Dextrose 10%-water IV solution 1,000 ML IV PRN (12:05)
[2019-03-18] MEDS ORDERED: methylnaltrexone br 12mg/0.6ml inj***SubQ only SQ SCH (12:28)
[2019-03-18] MEDS: potassium Cl 20mEq/100mL bag 100 ML IV PRN ×2 (12:41→14:09)
[2019-03-18] MEDS: NORepinephrine 8mg/ 250ml NS 250 ML IV SCH ×3 (12:54→21:41)
[2019-03-18] MEDS: OLANZapine **IM** 10 mg inj. IM SCH (13:15)
[2019-03-18] MEDS: levoTHYROXINE sod inj. 100mcg/5 ml vial IV SCH (13:18)
[2019-03-18 15:12] LABS: HEMATOCRIT 22.2 % (42.0-52.0); HEMOGLOBIN 7.5 g/dl (14.0-17.9); MEAN CORPUSCULAR HEMOGLOBIN 30.3 PG (27.0-31.0); MEAN CORPUSCULAR HGB CONC 33.6 g/dL (33.0-36.5); MEAN PLATELET VOLUME 8.5 FL (7.4-10.4); PLATELET COUNT 85 X10'3 (140-440); RED BLOOD COUNT 2.47 X10'6 (4.70-6.10); RED CELL DISTRIBUTION WIDTH 16.5 % (11.5-14.5); WHITE BLOOD COUNT 7.2 X10'3 (4.5-11.0)
[2019-03-18 15:26] LABS: ALANINE AMINOTRANSFERASE 35 U/L (12-78); ALBUMIN 1.5 G/DL (3.4-5.0); ALBUMIN/GLOBULIN RATIO 0.6 (1.1-1.5); ALKALINE PHOSPHATASE 62 IU/L (46-116); ANION GAP 10 (8-16); ASPARTATE AMINO TRANSFERASE 146 U/L (10-37); BILIRUBIN,TOTAL 2.7 MG/DL (0.1-1.0); BLOOD UREA NITROGEN 42 MG/DL (7-18); BUN/CREATININE RATIO 20.9 (5.4-32.0); CALCIUM 7.1 MG/DL (8.5-10.1); CHLORIDE 126 MMOL/L (99-107); CREATININE 2.01 MG/DL (0.60-1.10); GLUCOSE 93 MG/DL (70-104); MAGNESIUM 1.8 MG/DL (1.5-2.4); PHOSPHORUS 2.8 MG/DL (2.3-4.5); POTASSIUM 3.6 MMOL/L (3.5-5.1); PREALBUMIN 4.1 MG/DL (19-36); TOTAL CARBON DIOXIDE 23.4 MMOL/L (24-32); TRIGLYCERIDES 75 MG/DL (20-135); eGFR 34 ML/MIN
[2019-03-18 15:29] LABS: SODIUM 159 MMOL/L (135-145)
[2019-03-18] MEDS: albumin (Human) 5% 250ml 250 ML IV SCH ×4 (16:03→18:54)
[2019-03-18] MEDS ORDERED: methylnaltrexone br 12mg/0.6ml inj***SubQ only SQ ONE (17:35)
--- NOTE | 2019-03-18 18:45 | NUR ---
Patient in room CICU 2010. I have received report from FIDEL Amin and had the opportunity to ask questions and assume patient care.
[2019-03-18] MEDS: Trace element-5 inj. 1 ML in AA 5 %/CALCIUM/LYTES/DEXT 20% 2,000 ML IV SCH (20:38)
[2019-03-18] MEDS: fat emulsion IV bag 250 ML IV SCH (20:43)
[2019-03-18 21:01] LABS: MEAN CORPUSCULAR HEMOGLOBIN 30.5 PG (27.0-31.0); MEAN CORPUSCULAR HGB CONC 33.8 g/dL (33.0-36.5); MEAN CORPUSCULAR VOLUME 90.1 FL (78-98); MEAN PLATELET VOLUME 8.2 FL (7.4-10.4); PLATELET COUNT 69 X10'3 (140-440); RED BLOOD COUNT 2.19 X10'6 (4.70-6.10); RED CELL DISTRIBUTION WIDTH 16.9 % (11.5-14.5); WHITE BLOOD COUNT 6.5 X10'3 (4.5-11.0)
[2019-03-18 21:04] LABS: HEMATOCRIT 19.7 % (42.0-52.0); HEMOGLOBIN 6.7 g/dl (14.0-17.9)
[2019-03-19] VITALS (23 sets, daily range): BP systolic 102–155; BP diastolic 53–80
[2019-03-19] MEDS: piperacillin/tazo 3.375gm/50ml 50 ML IV SCH ×4 (01:07→23:40)
[2019-03-19] MEDS: mineral oil/petrolatum ophthal oint EACHEYE SCH ×4 (02:21→20:58)
[2019-03-19] MEDS: ipratropium/albuterol 3ml nebule NEB SCH ×6 (02:45→22:49)
[2019-03-19 02:59] LABS: BASOPHILS % (AUTO) 0.1 % (0-1); EOSINOPHILS % (AUTO) 0 % (0-6); HEMOGLOBIN 7.9 g/dl (14.0-17.9); LYMPHOCYTES # (AUTO) 0.3 X10'3 (1.1-4.8); LYMPHOCYTES % (AUTO) 3.8 % (21-51); MEAN CORPUSCULAR HEMOGLOBIN 30.6 PG (27.0-31.0); MEAN CORPUSCULAR HGB CONC 34.5 g/dL (33.0-36.5); MEAN CORPUSCULAR VOLUME 88.7 FL (78-98); MEAN PLATELET VOLUME 8.4 FL (7.4-10.4); MONOCYTES # (AUTO) 0.2 X10'3 (0-0.9); MONOCYTES % (AUTO) 2.6 % (2-12); NEUTROPHILS # (AUTO) 7.9 X10'3 (1.8-7.7); NEUTROPHILS % (AUTO) 93.5 % (42-75); PLATELET COUNT 71 X10'3 (140-440); RED BLOOD COUNT 2.59 X10'6 (4.70-6.10); RED CELL DISTRIBUTION WIDTH 16.4 % (11.5-14.5); WHITE BLOOD COUNT 8.4 X10'3 (4.5-11.0)
[2019-03-19 03:05] LABS: ABG BASE EXCESS -4.8 mmol/L (-2.0-3.0); ABG HCO3 19.6 mmol/L (22.0-26.0); ABG OXYGEN SATURATION 90.5 % (95-98); ABG PCO2 (T) 33.9 mmHg (35.0-45.0); ABG PH (T) 7.381 (7.350-7.450); ABG PO2 (T) 63.9 mmHg (83-108); FCOHb 0.3 % (0.5-1.5); FMetHb 0.3 % (0.3-1.12); MINUTE VOLUME 12 L/min; PATIENT TEMPERATURE 37.5; PEEP 5 cm H2O; RESPIRATORY RATE 18 b/min; RESPIRATORY RATE (OBSERVED) 24 b/min; TIDAL VOLUME 450 mL; TOTAL HEMOGLOBIN 8.2 G/dl (14.0-17.9)
[2019-03-19 03:21] LABS: ALANINE AMINOTRANSFERASE 32 U/L (12-78); ALBUMIN 1.9 G/DL (3.4-5.0); ALBUMIN/GLOBULIN RATIO 0.8 (1.1-1.5); ALKALINE PHOSPHATASE 53 IU/L (46-116); ANION GAP 15 (8-16); ASPARTATE AMINO TRANSFERASE 123 U/L (10-37); BLOOD UREA NITROGEN 46 MG/DL (7-18); BUN/CREATININE RATIO 21.4 (5.4-32.0); CALCIUM 6.9 MG/DL (8.5-10.1); CHLORIDE 123 MMOL/L (99-107); CREATININE 2.15 MG/DL (0.60-1.10); GLUCOSE 144 MG/DL (70-104); MAGNESIUM 1.9 MG/DL (1.5-2.4); PHOSPHORUS 2.8 MG/DL (2.3-4.5); POTASSIUM 3.4 MMOL/L (3.5-5.1); TOTAL CARBON DIOXIDE 19.4 MMOL/L (24-32); TOTAL PROTEIN 4.3 G/DL (6.4-8.2); eGFR 32 ML/MIN
[2019-03-19] MEDS: FENTANYL-0.9 % NACL/PF 100 ML IV PRN (03:23)
[2019-03-19 03:29] LABS: SODIUM 157 MMOL/L (135-145)
[2019-03-19 03:31] LABS: PARTIAL THROMBOPLASTIN TIME 82 SECONDS (22-32)
--- NOTE | 2019-03-19 04:00 | NUR ---
Large DTI assessed on pts right buttock, pictures taken and placed in chart. Also skin tear documented on right forearm.
--- NOTE | 2019-03-19 06:45 | NUR ---
Problems reprioritized. Patient report given, questions answered & plan of care reviewed with FIDEL Zaidi.
[2019-03-19] MEDS: dextrose 5%-1/2 normal saline 1,000 ML IV SCH ×2 (07:28→17:10)
[2019-03-19] MEDS: ASENAPINE 10 MG SL SCH (08:00)
[2019-03-19] MEDS: OLANZapine **IM** 10 mg inj. IM SCH ×2 (09:06→09:51)
[2019-03-19] MEDS: MVI, adult No.4 with vit. K 10 ML in dextrose 5% water 500ml 500 ML IV SCH ×2 (09:06)
[2019-03-19] MEDS: levoTHYROXINE sod inj. 100mcg/5 ml vial IV SCH (09:06)
[2019-03-19] MEDS: nicotine 14mg patch - 24hr TD SCH (09:06)
[2019-03-19] MEDS: fluconazole-Diflucan 200mg/NS 100 ML IV SCH (09:07)
[2019-03-19 09:27] LABS: HEMATOCRIT 22.8 % (42.0-52.0); HEMOGLOBIN 7.8 g/dl (14.0-17.9); MEAN CORPUSCULAR HEMOGLOBIN 30.4 PG (27.0-31.0); MEAN CORPUSCULAR HGB CONC 34.1 g/dL (33.0-36.5); MEAN CORPUSCULAR VOLUME 89.1 FL (78-98); MEAN PLATELET VOLUME 8.6 FL (7.4-10.4); PLATELET COUNT 61 X10'3 (140-440); RED BLOOD COUNT 2.55 X10'6 (4.70-6.10); RED CELL DISTRIBUTION WIDTH 16.8 % (11.5-14.5); WHITE BLOOD COUNT 7.3 X10'3 (4.5-11.0)
[2019-03-19] MEDS: NORepinephrine 8mg/ 250ml NS 250 ML IV SCH ×2 (09:34→22:30)
[2019-03-19] MEDS: potassium Cl 20mEq/100mL bag 100 ML IV PRN ×2 (12:28→14:10)
[2019-03-19 16:59] LABS: HEMOGLOBIN 7.2 g/dl (14.0-17.9); MEAN CORPUSCULAR HGB CONC 33.8 g/dL (33.0-36.5); MEAN CORPUSCULAR VOLUME 88.9 FL (78-98); MEAN PLATELET VOLUME 8.7 FL (7.4-10.4); PLATELET COUNT 57 X10'3 (140-440); RED BLOOD COUNT 2.41 X10'6 (4.70-6.10); RED CELL DISTRIBUTION WIDTH 16.8 % (11.5-14.5); WHITE BLOOD COUNT 5.3 X10'3 (4.5-11.0)
[2019-03-19 17:03] LABS: HEMATOCRIT 21.4 % (42.0-52.0)
--- NOTE | 2019-03-19 17:34 | NUR ---
reported h/h of 7.2/21.[address] christianson and no new orders received.
--- NOTE | 2019-03-19 18:27 | NUR ---
Problems reprioritized. Patient report given, questions answered & plan of care reviewed with Barbara PARRA .
--- NOTE | 2019-03-19 18:30 | NUR ---
Patient in room CICU 2010. I have received report from Eduar PARRA and had the opportunity to ask questions and assume patient care.
[2019-03-19] MEDS: fat emulsion IV bag 250 ML IV SCH (20:58)
[2019-03-19] MEDS: midazolam 100mg in NS 100ml 100 ML IV PRN (20:59)
[2019-03-19] MEDS: Trace element-5 inj. 1 ML in AA 5 %/CALCIUM/LYTES/DEXT 20% 2,000 ML IV SCH (20:59)
[2019-03-19 22:26] LABS: HEMOGLOBIN 7.1 g/dl (14.0-17.9); MEAN CORPUSCULAR HEMOGLOBIN 30.7 PG (27.0-31.0); MEAN CORPUSCULAR HGB CONC 34.6 g/dL (33.0-36.5); MEAN CORPUSCULAR VOLUME 88.7 FL (78-98); MEAN PLATELET VOLUME 8.8 FL (7.4-10.4); PLATELET COUNT 65 X10'3 (140-440); RED BLOOD COUNT 2.31 X10'6 (4.70-6.10); RED CELL DISTRIBUTION WIDTH 16.9 % (11.5-14.5); WHITE BLOOD COUNT 5.5 X10'3 (4.5-11.0)
--- NOTE | 2019-03-19 22:30 | NUR ---
received critical HCT 20.1. Notified March V. [employer]DI[employer] STUDIES PROFESSOR. No new orders at this time.
[2019-03-19 22:33] LABS: HEMATOCRIT 20.5 % (42.0-52.0)
[2019-03-20] VITALS (29 sets, daily range): BP systolic 123–167; BP diastolic 57–82
[2019-03-20] MEDS: mineral oil/petrolatum ophthal oint EACHEYE SCH ×4 (02:09→20:53)
[2019-03-20] MEDS: FENTANYL-0.9 % NACL/PF 100 ML IV PRN ×2 (02:09→19:00)
[2019-03-20] MEDS: ipratropium/albuterol 3ml nebule NEB SCH ×6 (02:49→23:09)
[2019-03-20] MEDS: dextrose 5%-1/2 normal saline 1,000 ML IV SCH ×2 (03:10→09:02)
[2019-03-20 03:40] LABS: ABG BASE EXCESS -1.4 mmol/L (-2.0-3.0); ABG HCO3 22.6 mmol/L (22.0-26.0); ABG OXYGEN SATURATION 94.1 % (95-98); ABG PCO2 (T) 35.1 mmHg (35.0-45.0); ABG PH (T) 7.428 (7.350-7.450); ABG PO2 (T) 73.9 mmHg (83-108); FCOHb 0.6 % (0.5-1.5); FMetHb 0.3 % (0.3-1.12); FO2Hb 93.3 % (94-100); MINUTE VOLUME 12 L/min; PATIENT TEMPERATURE 37.4; PEEP 5 cm H2O; RESPIRATORY RATE 18 b/min; RESPIRATORY RATE (OBSERVED) 24 b/min; TIDAL VOLUME 450 mL
[2019-03-20 03:57] LABS: BASOPHILS % (AUTO) 0.1 % (0-1); EOSINOPHILS % (AUTO) 0.1 % (0-6); LYMPHOCYTES # (AUTO) 0.2 X10'3 (1.1-4.8); LYMPHOCYTES % (AUTO) 4.2 % (21-51); MEAN CORPUSCULAR HEMOGLOBIN 30.1 PG (27.0-31.0); MEAN CORPUSCULAR HGB CONC 33.9 g/dL (33.0-36.5); MEAN CORPUSCULAR VOLUME 88.8 FL (78-98); MEAN PLATELET VOLUME 9.1 FL (7.4-10.4); MONOCYTES # (AUTO) 0.2 X10'3 (0-0.9); MONOCYTES % (AUTO) 3.5 % (2-12); NEUTROPHILS # (AUTO) 5.3 X10'3 (1.8-7.7); NEUTROPHILS % (AUTO) 92.1 % (42-75); RED BLOOD COUNT 2.28 X10'6 (4.70-6.10); RED CELL DISTRIBUTION WIDTH 16.7 % (11.5-14.5); WHITE BLOOD COUNT 5.7 X10'3 (4.5-11.0)
[2019-03-20 04:01] LABS: HEMATOCRIT 20.3 % (42.0-52.0); HEMOGLOBIN 6.9 g/dl (14.0-17.9); PLATELET COUNT 48 X10'3 (140-440)
[2019-03-20] MEDS ORDERED: dextrose ORAL solution 15 GM/59 ML bottle PO PRN ×2 (04:10)
[2019-03-20] MEDS ORDERED: glucagon, human recombinant 1mg kit SUBCUT PRN (04:10)
[2019-03-20] MEDS ORDERED: MESSAGE TO PHARMACY PO ONE (04:10)
[2019-03-20] MEDS ORDERED: dextrose 50%-water 50ml dispensing syringe IV PRN ×2 (04:10)
[2019-03-20 04:12] LABS: PARTIAL THROMBOPLASTIN TIME 54 SECONDS (22-32)
[2019-03-20 04:15] LABS: ALANINE AMINOTRANSFERASE 30 U/L (12-78); ALBUMIN 1.3 G/DL (3.4-5.0); ALBUMIN/GLOBULIN RATIO 0.5 (1.1-1.5); ALKALINE PHOSPHATASE 54 IU/L (46-116); ANION GAP 11 (8-16); ASPARTATE AMINO TRANSFERASE 119 U/L (10-37); BILIRUBIN,TOTAL 2.5 MG/DL (0.1-1.0); BLOOD UREA NITROGEN 44 MG/DL (7-18); BUN/CREATININE RATIO 22.2 (5.4-32.0); CALCIUM 7.1 MG/DL (8.5-10.1); CHLORIDE 122 MMOL/L (99-107); CREATININE 1.98 MG/DL (0.60-1.10); GLUCOSE 213 MG/DL (70-104); MAGNESIUM 1.9 MG/DL (1.5-2.4); PHOSPHORUS 2.1 MG/DL (2.3-4.5); TOTAL CARBON DIOXIDE 22.8 MMOL/L (24-32); TOTAL PROTEIN 4.1 G/DL (6.4-8.2); eGFR 35 ML/MIN
[2019-03-20 04:26] LABS: SODIUM 156 MMOL/L (135-145)
[2019-03-20 04:27] LABS: POTASSIUM 2.9 MMOL/L (3.5-5.1)
[2019-03-20] MEDS: potassium Cl 20mEq/100mL bag 100 ML IV PRN ×4 (04:32→11:59)
--- NOTE | 2019-03-20 04:51 | NUR ---
Critical lab results received. Notified March Jessy CABRERA. New orders received.
--- NOTE | 2019-03-20 06:15 | NUR ---
Patient in room CICU 2010. I have received report from manager night and had the opportunity to ask questions and assume patient care.
[2019-03-20] MEDS: NORepinephrine 8mg/ 250ml NS 250 ML IV SCH ×3 (06:54→23:42)
[2019-03-20] MEDS: methylnaltrexone br 12mg/0.6ml inj***SubQ only SQ SCH (08:48)
[2019-03-20] MEDS: piperacillin/tazo 3.375gm/50ml 50 ML IV SCH ×3 (08:48→23:34)
[2019-03-20] MEDS: MVI, adult No.4 with vit. K 10 ML in dextrose 5% water 500ml 500 ML IV SCH ×2 (08:49)
[2019-03-20] MEDS: levoTHYROXINE sod inj. 100mcg/5 ml vial IV SCH (08:49)
[2019-03-20] MEDS: nicotine 14mg patch - 24hr TD SCH (08:49)
[2019-03-20] MEDS: fluconazole-Diflucan 200mg/NS 100 ML IV SCH (08:49)
[2019-03-20] MEDS: insulin regular, human vial - multi-dose SQ SCH ×3 (09:16→21:00)
[2019-03-20 09:51] LABS: HEMATOCRIT 22.9 % (42.0-52.0); HEMOGLOBIN 7.9 g/dl (14.0-17.9); MEAN CORPUSCULAR HEMOGLOBIN 30.7 PG (27.0-31.0); MEAN CORPUSCULAR HGB CONC 34.4 g/dL (33.0-36.5); MEAN CORPUSCULAR VOLUME 89.2 FL (78-98); MEAN PLATELET VOLUME 8.9 FL (7.4-10.4); RED BLOOD COUNT 2.57 X10'6 (4.70-6.10); WHITE BLOOD COUNT 6.8 X10'3 (4.5-11.0)
[2019-03-20 09:55] LABS: PLATELET COUNT 46 X10'3 (140-440)
--- NOTE | 2019-03-20 11:53 | NUR ---
Pharmacy TC: K 2.9, Phos 2.1, Na 156 today. Mg WNL so likely not refeeding. Pt free water on hold, has received NS boluses frequently past 3 days w/ D5/half NS started today. RD d/w RN regarding change to D5/water per MD approval given Na and pt receiving E in TPN. Will monitor for TPN tolerance. TPN consult, patient is not tolerating Jejunal tube feedings bedside RN reports tube feeding and medication coming back up through J-port. In view of intolerance to tube feedings, poor nutrition for more than seven days and expected to not meet needs through enteral recommend TPN to meet needs. Sodium is elevated at 157, consider D5% d/w bedside RN, bedside RN discussed with surgeon and RD discussed TPN with surgeon also. Recommend to also discontinue 200 ml water flush into J-port and consider water flushes for patency, water flushes over 150 ml not recommended into Jejunum. 7,200 ml were aspirated from G-tube yesterday. Noted that patient is receiving Fentanyl, consider opiate-antagonist agonist to relieve opiate induced constipation and improve gastric motility. Consider continuing jejunal feedings when gastric output is improved. Noted that ensure enlive is in MAR, recommend to bedside RN to discontinue as it is not needed and not appropriate into the jejunum. Discussed TPN recommendations with pharmacy, patient has central line. Noted that colostomy output very little, about 20 ml so far with small plug this morning per RN. Will continue to follow. Recommend: 1. Discontinue jejunal tube feedings in view of poor tolerance. Recommend to continue jejunal feedings when gastric output is improved, consider gastric opiate agonist antagonist in view of fentanyl to improve gastric motility.When OK by surgeon to resume jejunal feedings recommend: Continuous GJTF through J port starting at 30 ml/hr using Vital High Protein and advance as tolerated to goal rate 90ml/hr goal; to provide 2280ml fluid, 1847ml free water, 2280kcals, and 200g protein. 2. when receiving jejunal feedings recommend additional water flush 150 ml q 3 hours 3. daily weights, prealbumin q Thursday/ 4. Continue relistor per 5. 2:1 TPN to run continuously using Clinimix E 5/20 at 110ml/hr goal with separate 20% intralipids at 100ml at 8 ml/hr for 12 hours daily. TPN will provide total volume of 2640 ml, 2515 cals, 132 gm protein, and 3.5 mg/kg/min CHO loading. Addendum: 03/20/19 at [address] Amended: Links added.
[2019-03-20] MEDS ORDERED: sodium phosphate inj. 30 MMOL in dextrose 5%-water 250 ML IV PRN (15:05)
[2019-03-20] MEDS ORDERED: sodium phosphate inj. 15 MMOL in dextrose 5%-water 150 ML IV PRN (15:05)
[2019-03-20 17:11] LABS: HEMATOCRIT 23.2 % (42.0-52.0); MEAN CORPUSCULAR HEMOGLOBIN 30.5 PG (27.0-31.0); MEAN CORPUSCULAR HGB CONC 34.5 g/dL (33.0-36.5); MEAN CORPUSCULAR VOLUME 88.5 FL (78-98); MEAN PLATELET VOLUME 8.8 FL (7.4-10.4); PLATELET COUNT 51 X10'3 (140-440); RED BLOOD COUNT 2.62 X10'6 (4.70-6.10); WHITE BLOOD COUNT 7.1 X10'3 (4.5-11.0)
--- NOTE | 2019-03-20 18:27 | NUR ---
Problems reprioritized. Patient report given, questions answered & plan of care reviewed with oncoming shift.
--- NOTE | 2019-03-20 18:30 | NUR ---
Patient in room CICU 2010. I have received report from Annalise PARRA and had the opportunity to ask questions and assume patient care.
[2019-03-20] MEDS: fat emulsion IV bag 250 ML IV SCH (20:53)
[2019-03-20] MEDS: midazolam 100mg in NS 100ml 100 ML IV PRN (20:54)
[2019-03-20] MEDS: insulin glargine (Lantus) pen - multi-dose SQ SCH (20:56)
[2019-03-20] MEDS: Trace element-5 inj. 1 ML in AA 5 %/CALCIUM/LYTES/DEXT 20% 2,000 ML IV SCH (21:12)
[2019-03-20 22:18] LABS: MEAN CORPUSCULAR HEMOGLOBIN 31.1 PG (27.0-31.0); MEAN CORPUSCULAR VOLUME 88.7 FL (78-98); MEAN PLATELET VOLUME 9.1 FL (7.4-10.4); PLATELET COUNT 67 X10'3 (140-440); RED BLOOD COUNT 2.59 X10'6 (4.70-6.10); RED CELL DISTRIBUTION WIDTH 16.2 % (11.5-14.5); WHITE BLOOD COUNT 7.6 X10'3 (4.5-11.0)
[2019-03-21] VITALS (22 sets, daily range): BP systolic 102–159; BP diastolic 44–76
[2019-03-21 01:20] LABS: BASOPHILS % (AUTO) 0.2 % (0-1); EOSINOPHILS # (AUTO) 0.1 X10'3 (0-0.9); EOSINOPHILS % (AUTO) 0.8 % (0-6); HEMATOCRIT 22.6 % (42.0-52.0); HEMOGLOBIN 7.7 g/dl (14.0-17.9); LYMPHOCYTES # (AUTO) 0.4 X10'3 (1.1-4.8); LYMPHOCYTES % (AUTO) 5.3 % (21-51); MEAN CORPUSCULAR HEMOGLOBIN 30.5 PG (27.0-31.0); MEAN CORPUSCULAR HGB CONC 34.2 g/dL (33.0-36.5); MEAN PLATELET VOLUME 9.3 FL (7.4-10.4); MONOCYTES # (AUTO) 0.3 X10'3 (0-0.9); NEUTROPHILS % (AUTO) 88.7 % (42-75); PLATELET COUNT 53 X10'3 (140-440); RED BLOOD COUNT 2.54 X10'6 (4.70-6.10); RED CELL DISTRIBUTION WIDTH 16.4 % (11.5-14.5); WHITE BLOOD COUNT 6.7 X10'3 (4.5-11.0)
[2019-03-21 01:29] LABS: ALANINE AMINOTRANSFERASE 31 U/L (12-78); ALBUMIN 1.1 G/DL (3.4-5.0); ALBUMIN/GLOBULIN RATIO 0.3 (1.1-1.5); ALKALINE PHOSPHATASE 64 IU/L (46-116); ANION GAP 11 (8-16); ASPARTATE AMINO TRANSFERASE 117 U/L (10-37); BILIRUBIN,TOTAL 3.1 MG/DL (0.1-1.0); CALCIUM 7.2 MG/DL (8.5-10.1); CHLORIDE 122 MMOL/L (99-107); CREATININE 1.88 MG/DL (0.60-1.10); GLUCOSE 207 MG/DL (70-104); MAGNESIUM 1.8 MG/DL (1.5-2.4); PHOSPHORUS 1.6 MG/DL (2.3-4.5); POTASSIUM 3.2 MMOL/L (3.5-5.1); PREALBUMIN 4.4 MG/DL (19-36); TOTAL CARBON DIOXIDE 23.4 MMOL/L (24-32); TOTAL PROTEIN 4.4 G/DL (6.4-8.2); TRIGLYCERIDES 151 MG/DL (20-135); eGFR 37 ML/MIN
[2019-03-21 01:35] LABS: BLOOD UREA NITROGEN 43 MG/DL (7-18)
[2019-03-21] MEDS: mineral oil/petrolatum ophthal oint EACHEYE SCH ×4 (01:39→20:09)
[2019-03-21 01:40] LABS: SODIUM 156 MMOL/L (135-145)
[2019-03-21] MEDS: insulin regular, human vial - multi-dose SQ SCH ×4 (01:45→20:45)
[2019-03-21 01:46] LABS: PARTIAL THROMBOPLASTIN TIME 43 SECONDS (22-32)
[2019-03-21 02:50] LABS: BUN/CREATININE RATIO 22.9 (5.4-32.0)
[2019-03-21] MEDS: ipratropium/albuterol 3ml nebule NEB SCH ×6 (02:57→23:22)
[2019-03-21 03:10] LABS: ABG BASE EXCESS -3.2 mmol/L (-2.0-3.0); ABG HCO3 20.5 mmol/L (22.0-26.0); ABG OXYGEN SATURATION 91.6 % (95-98); ABG PCO2 (T) 32.6 mmHg (35.0-45.0); ABG PH (T) 7.421 (7.350-7.450); ABG PO2 (T) 66.1 mmHg (83-108); FCOHb 0.3 % (0.5-1.5); FO2Hb 91.3 % (94-100); MINUTE VOLUME 12 L/min; PATIENT TEMPERATURE 38.1; PEEP 5 cm H2O; RESPIRATORY RATE 18 b/min; RESPIRATORY RATE (OBSERVED) 27 b/min; TIDAL VOLUME 450 mL; TOTAL HEMOGLOBIN 7.8 G/dl (14.0-17.9)
--- NOTE | 2019-03-21 04:00 | NUR ---
Oh red blood noted coming out of NG tube. Labs drawn and monitored. Notified March FURNITURE REFINISHER. New orders received.
[2019-03-21 05:30] LABS: HEMOGLOBIN 7.4 g/dl (14.0-17.9); MEAN CORPUSCULAR HEMOGLOBIN 30.7 PG (27.0-31.0); MEAN CORPUSCULAR HGB CONC 34.8 g/dL (33.0-36.5); MEAN CORPUSCULAR VOLUME 88.2 FL (78-98); MEAN PLATELET VOLUME 9.3 FL (7.4-10.4); PLATELET COUNT 53 X10'3 (140-440); RED BLOOD COUNT 2.41 X10'6 (4.70-6.10); RED CELL DISTRIBUTION WIDTH 16.3 % (11.5-14.5); WHITE BLOOD COUNT 6.6 X10'3 (4.5-11.0)
[2019-03-21 05:35] LABS: HEMATOCRIT 21.3 % (42.0-52.0)
--- NOTE | 2019-03-21 05:37 | NUR ---
Received critical HCT 21.3. Called March MANAGER ENDOSCOPY. No new orders at this time.
[2019-03-21] MEDS: potassium Cl 20mEq/100mL bag 100 ML IV PRN ×2 (05:54→07:06)
--- NOTE | 2019-03-21 06:33 | NUR ---
Patient in room CICU 2010. I have received report from Barbara PARRA and had the opportunity to ask questions and assume patient care with Kaylie Matt RN.
[2019-03-21] MEDS: levoTHYROXINE sod inj. 100mcg/5 ml vial IV SCH (07:28)
[2019-03-21] MEDS: nicotine 14mg patch - 24hr TD SCH (07:29)
[2019-03-21] MEDS: fluconazole-Diflucan 200mg/NS 100 ML IV SCH (07:29)
[2019-03-21] MEDS: piperacillin/tazo 3.375gm/50ml 50 ML IV SCH ×2 (07:44→15:24)
[2019-03-21] MEDS: OLANZapine **IM** 10 mg inj. IM SCH (07:54)
[2019-03-21] MEDS ORDERED: famotidine/PF 10 mg/ml inj IV SCH (08:00)
[2019-03-21] MEDS: NORepinephrine 8mg/ 250ml NS 250 ML IV SCH (08:06)
[2019-03-21] MEDS: MVI, adult No.4 with vit. K 10 ML in dextrose 5% water 500ml 500 ML IV SCH ×2 (08:46)
[2019-03-21] MEDS: midazolam 100mg in NS 100ml 100 ML IV PRN (09:57)
[2019-03-21] MEDS: Trace element-5 inj. 1 ML in AA 5 %/CALCIUM/LYTES/DEXT 20% 2,000 ML IV SCH (09:58)
[2019-03-21] MEDS: FENTANYL-0.9 % NACL/PF 100 ML IV PRN ×2 (10:00→19:29)
--- NOTE | 2019-03-21 10:45 | NUR ---
ROUNDS NOTE: Dr. Ritter notified of new GIB from OGT. present during rounds. emergency services professional to be contacted to assist with any questions/concerns she may have.
[2019-03-21 11:56] LABS: MEAN CORPUSCULAR HEMOGLOBIN 30.4 PG (27.0-31.0); MEAN CORPUSCULAR HGB CONC 34.2 g/dL (33.0-36.5); MEAN CORPUSCULAR VOLUME 88.9 FL (78-98); MEAN PLATELET VOLUME 9.6 FL (7.4-10.4); PLATELET COUNT 64 X10'3 (140-440); RED BLOOD COUNT 2.28 X10'6 (4.70-6.10); RED CELL DISTRIBUTION WIDTH 16.7 % (11.5-14.5)
[2019-03-21 12:00] LABS: HEMATOCRIT 20.3 % (42.0-52.0); HEMOGLOBIN 6.9 g/dl (14.0-17.9)
--- NOTE | 2019-03-21 13:22 | NUR ---
Reassessment: Pt intubated, sedated, receiving TPN at goal rate in view of intolerance to jejunal feedings noted on 03/18; patient had delayed gastric emptying with 7,200 ml aspirated from NG tube 03/18. Received one dose relistor on 03/20; gastric output decreased to 1550 ml 03/20 however how patient has GI bleed with blood in NG tube. TPN still indicated in view of GI bleed. When GI bleed is resolved recommend restarting tube feeding, starting at trickle rate. Colostomy bag with 50 ml 03/21. Noted that sodium still elevated at 157; patient is receiving Dextrose and 1/2 normal saline now instead of just NS. Will continue to follow. Recommend: 1. Discontinue jejunal tube feedings in view of poor tolerance. Recommend to continue jejunal feedings when gastric output is improved and when GI bleed is resolved.When OK by surgeon to resume jejunal feedings recommend: Continuous GJTF through J port starting at 30 ml/hr using Vital High Protein and advance as tolerated to goal rate 90ml/hr goal; to provide 2280ml fluid, 1847ml free water, 2280kcals, and 200g protein. 2. when receiving jejunal feedings recommend additional water flush 150 ml q 3 hours 3. daily weights, prealbumin q Thursday/ 4. Continue relistor per 5. 2:1 TPN to run continuously using Clinimix E 07/26 at 110ml/hr goal with separate 20% intralipids at 100ml at 8 ml/hr for 12 hours daily. TPN will provide total volume of 2640 ml, 2515 cals, 132 gm protein, and 3.5 mg/kg/min CHO loading. Addendum: 03/21/19 at [address] Amended: Links added.
[2019-03-21] MEDS ORDERED: pantoprazole 40 MG vial IV ONE (15:15)
--- NOTE | 2019-03-21 15:35 | NUR ---
1 unit PRBC transfused for Hbg <[address] Ritter's order.
[2019-03-21] MEDS: pantoprazole 40MG/NS 100ML BAG 100 ML IV SCH ×2 (16:35→20:56)
--- NOTE | 2019-03-21 17:39 | NUR ---
Dr. Katz in to see pt. Notified of bloody drainage from NGT and new Protonix gtt per Dr. Ritter. Aware of ostomy output. Orders received to start TF.
[2019-03-21 17:40] LABS: HEMATOCRIT 24.3 % (42.0-52.0); HEMOGLOBIN 8.3 g/dl (14.0-17.9); MEAN CORPUSCULAR HEMOGLOBIN 30.6 PG (27.0-31.0); MEAN CORPUSCULAR HGB CONC 34.2 g/dL (33.0-36.5); MEAN CORPUSCULAR VOLUME 89.5 FL (78-98); MEAN PLATELET VOLUME 9.1 FL (7.4-10.4); PLATELET COUNT 64 X10'3 (140-440); RED BLOOD COUNT 2.72 X10'6 (4.70-6.10); RED CELL DISTRIBUTION WIDTH 16.1 % (11.5-14.5)
--- NOTE | 2019-03-21 18:23 | NUR ---
Problems reprioritized. Patient report given, questions answered & plan of care reviewed with Elda PARRA.
--- NOTE | 2019-03-21 18:33 | NUR ---
Patient in room CICU 2010. I have received report from Alecia PARRA and had the opportunity to ask questions and assume patient care.
[2019-03-21] MEDS ORDERED: dextrose ORAL solution 15 GM/59 ML bottle NG PRN ×2 (18:38→18:39)
[2019-03-21] MEDS: insulin glargine (Lantus) pen - multi-dose SQ SCH (20:53)
[2019-03-21] MEDS: fat emulsion IV bag 250 ML IV SCH (21:58)
[2019-03-21 22:44] LABS: HEMOGLOBIN 8.6 g/dl (14.0-17.9); MEAN CORPUSCULAR HEMOGLOBIN 30.8 PG (27.0-31.0); MEAN CORPUSCULAR HGB CONC 34.2 g/dL (33.0-36.5); MEAN CORPUSCULAR VOLUME 89.8 FL (78-98); MEAN PLATELET VOLUME 9.4 FL (7.4-10.4); PLATELET COUNT 75 X10'3 (140-440); RED BLOOD COUNT 2.79 X10'6 (4.70-6.10); RED CELL DISTRIBUTION WIDTH 16.1 % (11.5-14.5); WHITE BLOOD COUNT 5.8 X10'3 (4.5-11.0)
[2019-03-21] MEDS ORDERED: atropine 0.1mg/ml 10ml syringe ONE (23:25)
--- NOTE | 2019-03-21 23:30 | NUR ---
Pt's HR dropped to 25. SUSTAINABLE AGRICULTURE SPECIALIST notified. Atropine given, dopamine started. Sedation turned down.
[2019-03-21] MEDS ORDERED: DOPamine 400mg/D5W 250ml 250 ML IV ONE (23:34)
[2019-03-21 23:36] LABS: ABG BASE EXCESS -5.4 mmol/L (-2.0-3.0); ABG HCO3 21.1 mmol/L (22.0-26.0); ABG OXYGEN SATURATION 88.8 % (95-98); ABG PCO2 (T) 47.4 mmHg (35.0-45.0); ABG PH (T) 7.271 (7.350-7.450); ABG PO2 (T) 65.2 mmHg (83-108); FCOHb 0.3 % (0.5-1.5); FMetHb 0.2 % (0.3-1.12); FO2Hb 88.4 % (94-100); MINUTE VOLUME 9 L/min; PATIENT TEMPERATURE 38.1; PEEP 5 cm H2O; RESPIRATORY RATE 18 b/min; RESPIRATORY RATE (OBSERVED) 21 b/min; TIDAL VOLUME 450 mL; TOTAL HEMOGLOBIN 9.5 G/dl (14.0-17.9)
[2019-03-21] MEDS: DOPamine 400mg/D5W 250ml 250 ML IV SCH (23:52)
[2019-03-22] VITALS (24 sets, daily range): BP systolic 83–134; BP diastolic 42–62
[2019-03-22 00:03] LABS: PARTIAL THROMBOPLASTIN TIME 35 SECONDS (22-32)
[2019-03-22 00:05] LABS: ALANINE AMINOTRANSFERASE 32 U/L (12-78); ALKALINE PHOSPHATASE 78 IU/L (46-116); ASPARTATE AMINO TRANSFERASE 110 U/L (10-37); BILIRUBIN,TOTAL 3.5 MG/DL (0.1-1.0); BLOOD UREA NITROGEN 39 MG/DL (7-18); BUN/CREATININE RATIO 22.8 (5.4-32.0); CREATININE 1.71 MG/DL (0.60-1.10); MAGNESIUM 1.7 MG/DL (1.5-2.4); TOTAL CARBON DIOXIDE 26.3 MMOL/L (24-32); eGFR 41 ML/MIN
[2019-03-22 00:06] LABS: BASOPHILS % (AUTO) 0.3 % (0-1); EOSINOPHILS # (AUTO) 0.1 X10'3 (0-0.9); EOSINOPHILS % (AUTO) 1.5 % (0-6); HEMOGLOBIN 9.3 g/dl (14.0-17.9); LYMPHOCYTES # (AUTO) 0.3 X10'3 (1.1-4.8); LYMPHOCYTES % (AUTO) 4.6 % (21-51); MEAN CORPUSCULAR HEMOGLOBIN 31.2 PG (27.0-31.0); MEAN CORPUSCULAR HGB CONC 34.5 g/dL (33.0-36.5); MEAN CORPUSCULAR VOLUME 90.3 FL (78-98); MEAN PLATELET VOLUME 9.4 FL (7.4-10.4); MONOCYTES # (AUTO) 0.2 X10'3 (0-0.9); MONOCYTES % (AUTO) 3.6 % (2-12); PLATELET COUNT 77 X10'3 (140-440); RED BLOOD COUNT 2.99 X10'6 (4.70-6.10); WHITE BLOOD COUNT 6.7 X10'3 (4.5-11.0)
[2019-03-22 00:24] LABS: ALBUMIN/GLOBULIN RATIO 0.3 (1.1-1.5); ANION GAP 16 (8-16); CHLORIDE 115 MMOL/L (99-107); GLUCOSE 74 MG/DL (70-104); PHOSPHORUS 2.1 MG/DL (2.3-4.5); POTASSIUM 3.6 MMOL/L (3.5-5.1)
[2019-03-22 00:26] LABS: SODIUM 157 MMOL/L (135-145)
[2019-03-22] MEDS: piperacillin/tazo 3.375gm/50ml 50 ML IV SCH ×4 (00:46→15:42)
[2019-03-22] MEDS: pantoprazole 40MG/NS 100ML BAG 100 ML IV SCH ×6 (01:00→23:50)
[2019-03-22] MEDS: insulin regular, human vial - multi-dose SQ SCH ×3 (02:11→13:49)
[2019-03-22] MEDS: mineral oil/petrolatum ophthal oint EACHEYE SCH ×4 (02:13→20:42)
[2019-03-22] MEDS: FENTANYL-0.9 % NACL/PF 100 ML IV PRN ×2 (02:44→12:03)
[2019-03-22] MEDS: ipratropium/albuterol 3ml nebule NEB SCH ×6 (03:24→23:26)
[2019-03-22 03:32] LABS: BASOPHILS % (AUTO) 0.3 % (0-1); EOSINOPHILS # (AUTO) 0.1 X10'3 (0-0.9); EOSINOPHILS % (AUTO) 1.1 % (0-6); HEMATOCRIT 24.5 % (42.0-52.0); HEMOGLOBIN 8.4 g/dl (14.0-17.9); LYMPHOCYTES # (AUTO) 0.3 X10'3 (1.1-4.8); LYMPHOCYTES % (AUTO) 5.7 % (21-51); MEAN CORPUSCULAR HEMOGLOBIN 30.8 PG (27.0-31.0); MEAN CORPUSCULAR HGB CONC 34.1 g/dL (33.0-36.5); MEAN CORPUSCULAR VOLUME 90.2 FL (78-98); MEAN PLATELET VOLUME 9.5 FL (7.4-10.4); MONOCYTES # (AUTO) 0.3 X10'3 (0-0.9); MONOCYTES % (AUTO) 5.3 % (2-12); NEUTROPHILS # (AUTO) 5.3 X10'3 (1.8-7.7); NEUTROPHILS % (AUTO) 87.6 % (42-75); PLATELET COUNT 67 X10'3 (140-440); RED BLOOD COUNT 2.72 X10'6 (4.70-6.10)
[2019-03-22 03:40] LABS: PARTIAL THROMBOPLASTIN TIME 40 SECONDS (22-32)
[2019-03-22 03:44] LABS: ALANINE AMINOTRANSFERASE 30 U/L (12-78); ALBUMIN/GLOBULIN RATIO 0.3 (1.1-1.5); ALKALINE PHOSPHATASE 74 IU/L (46-116); ANION GAP 10 (8-16); ASPARTATE AMINO TRANSFERASE 100 U/L (10-37); BILIRUBIN,TOTAL 3.2 MG/DL (0.1-1.0); BLOOD UREA NITROGEN 38 MG/DL (7-18); BUN/CREATININE RATIO 21.5 (5.4-32.0); CALCIUM 7.1 MG/DL (8.5-10.1); CHLORIDE 118 MMOL/L (99-107); CREATININE 1.77 MG/DL (0.60-1.10); GLUCOSE 133 MG/DL (70-104); MAGNESIUM 1.6 MG/DL (1.5-2.4); PHOSPHORUS 2.5 MG/DL (2.3-4.5); POTASSIUM 3.7 MMOL/L (3.5-5.1); SODIUM 153 MMOL/L (135-145); TOTAL CARBON DIOXIDE 25.2 MMOL/L (24-32); TOTAL PROTEIN 4.8 G/DL (6.4-8.2); eGFR 39 ML/MIN
[2019-03-22 03:51] LABS: ABG BASE EXCESS -2.1 mmol/L (-2.0-3.0); ABG HCO3 23.8 mmol/L (22.0-26.0); ABG OXYGEN SATURATION 85.8 % (95-98); ABG PCO2 (T) 48.5 mmHg (35.0-45.0); ABG PH (T) 7.315 (7.350-7.450); ABG PO2 (T) 56.2 mmHg (83-108); FCOHb 0.3 % (0.5-1.5); FMetHb 0.3 % (0.3-1.12); FO2Hb 85.3 % (94-100); MINUTE VOLUME 11 L/min; PATIENT TEMPERATURE 38.2; PEEP 5 cm H2O; RESPIRATORY RATE 20 b/min; RESPIRATORY RATE (OBSERVED) 22 b/min; TIDAL VOLUME 450 mL; TOTAL HEMOGLOBIN 8.7 G/dl (14.0-17.9)
--- NOTE | 2019-03-22 04:54 | NUR ---
Pt's map 54. Dopamine at 7.5. Albumin 1.0. CVP 5. Notified EXECUTIVE VICE PRESIDENT BUSINESS DEVELOPMENT, no new orders.
[2019-03-22] MEDS: fluconazole-Diflucan 200mg/NS 100 ML IV SCH (06:38)
[2019-03-22] MEDS: OLANZapine **IM** 10 mg inj. IM SCH (06:39)
[2019-03-22] MEDS: MVI, adult No.4 with vit. K 10 ML in dextrose 5% water 500ml 500 ML IV SCH ×2 (07:03)
[2019-03-22] MEDS: levoTHYROXINE sod inj. 100mcg/5 ml vial IV SCH (07:03)
[2019-03-22] MEDS: nicotine 14mg patch - 24hr TD SCH (07:04)
[2019-03-22] MEDS: methylnaltrexone br 12mg/0.6ml inj***SubQ only SQ SCH (07:04)
[2019-03-22] MEDS: dextrose 5%-1/2 normal saline 1,000 ML IV SCH (07:30)
[2019-03-22] MEDS ORDERED: acetaminophen 1,000mg/100ml IV 100 ML IV ONE (09:40)
--- NOTE | 2019-03-22 09:58 | NUR ---
Dr. Ritter notified of: Fever, bradycardia that ocurred last noc. Orders received. Patten cxs obtained.
[2019-03-22] MEDS: DOPamine 400mg/D5W 250ml 250 ML IV SCH ×3 (10:15→22:43)
[2019-03-22 10:24] LABS: HEMATOCRIT 23.2 % (42.0-52.0); HEMOGLOBIN 7.8 g/dl (14.0-17.9); MEAN CORPUSCULAR HEMOGLOBIN 30.4 PG (27.0-31.0); MEAN CORPUSCULAR HGB CONC 33.6 g/dL (33.0-36.5); MEAN CORPUSCULAR VOLUME 90.5 FL (78-98); MEAN PLATELET VOLUME 9.4 FL (7.4-10.4); PLATELET COUNT 85 X10'3 (140-440); RED BLOOD COUNT 2.57 X10'6 (4.70-6.10); RED CELL DISTRIBUTION WIDTH 16.2 % (11.5-14.5); WHITE BLOOD COUNT 5.3 X10'3 (4.5-11.0)
[2019-03-22] MEDS ORDERED: normal saline 1000ml 1,000 ML IV ONE (12:10)
--- NOTE | 2019-03-22 12:19 | NUR ---
Dr. Ritter notified of low BP. IL NS ordered and infusing now.
--- NOTE | 2019-03-22 14:04 | NUR ---
Dr. Katz in to see pt. Stated to DC NGT.
[2019-03-22] MEDS: Trace element-5 inj. 1 ML in AA 5 %/CALCIUM/LYTES/DEXT 20% 2,000 ML IV SCH (15:46)
--- NOTE | 2019-03-22 15:57 | NUR ---
Tube feeding consult, per surgeon restart tube feedings at low rate. Discussed at rounds with sand polisher, recommends starting at 10 and increase slowly to 30 ml/hr; d/w RN recommendation for vital AF. Will continue to follow. Reassessment: Pt intubated, sedated, receiving TPN at goal rate in view of intolerance to jejunal feedings noted on 03/18; patient had delayed gastric emptying with 7,200 ml aspirated from NG tube 03/18. Received one dose relistor on 03/20; gastric output decreased to 1550 ml 03/20 however how patient has GI bleed with blood in NG tube. TPN still indicated in view of GI bleed. When GI bleed is resolved recommend restarting tube feeding, starting at trickle rate. Colostomy bag with 50 ml 03/21. Noted that sodium still elevated at 157; patient is receiving Dextrose and 1/2 normal saline now instead of just NS. Will continue to follow. Recommend: 1. Resume jejunal tube feedings at trickle rate starting at 10 ml/hr and advance as tolerated by 10 ml q 8 hours to 30 ml/hr. If tolerated and OK by MD to advance to goal recommend continuous GJTF through J port starting at 30 ml/hr using Vital High Protein and advance as tolerated to goal rate 90ml/hr goal; to provide 2280ml fluid, 1847ml free water, 2280kcals, and 200g protein. 2. when receiving jejunal feedings recommend additional water flush 150 ml q 3 hours 3. daily weights, prealbumin q Thursday/ 4. Continue relistor per MD 5. 2:1 TPN to run continuously using Clinimix E 07/26 at 110ml/hr goal with separate 20% intralipids at 100ml at 8 ml/hr for 12 hours daily. TPN will provide total volume of 2640 ml, 2515 cals, 132 gm protein, and 3.5 mg/kg/min CHO loading. Addendum: 03/22/19 at [address] Amended: Links added.
[2019-03-22 17:38] LABS: HEMATOCRIT 23.5 % (42.0-52.0); MEAN CORPUSCULAR HEMOGLOBIN 30.3 PG (27.0-31.0); MEAN CORPUSCULAR HGB CONC 33.9 g/dL (33.0-36.5); MEAN CORPUSCULAR VOLUME 89.3 FL (78-98); MEAN PLATELET VOLUME 9.4 FL (7.4-10.4); PLATELET COUNT 100 X10'3 (140-440); RED BLOOD COUNT 2.63 X10'6 (4.70-6.10); RED CELL DISTRIBUTION WIDTH 16.1 % (11.5-14.5); WHITE BLOOD COUNT 6.5 X10'3 (4.5-11.0)
--- NOTE | 2019-03-22 18:20 | NUR ---
Patient in room CICU 2010. I have received report from FIDEL Lott and had the opportunity to ask questions and assume patient care. Patient is intubated/sedated, I will continue to monitor.
[2019-03-22] MEDS: fat emulsion IV bag 250 ML IV SCH (20:42)
[2019-03-22] MEDS: insulin glargine (Lantus) pen - multi-dose SQ SCH (21:33)
[2019-03-23] VITALS (24 sets, daily range): BP systolic 82–109; BP diastolic 46–59
[2019-03-23] MEDS: piperacillin/tazo 3.375gm/50ml 50 ML IV SCH ×2 (00:26→07:34)
[2019-03-23] MEDS: insulin regular, human vial - multi-dose SQ SCH ×3 (02:06→14:07)
[2019-03-23] MEDS: mineral oil/petrolatum ophthal oint EACHEYE SCH ×4 (02:07→21:10)
[2019-03-23] MEDS: FENTANYL-0.9 % NACL/PF 100 ML IV PRN ×2 (02:34→15:36)
[2019-03-23 03:00] LABS: PARTIAL THROMBOPLASTIN TIME 41 SECONDS (22-32)
[2019-03-23 03:01] LABS: BASOPHILS % (AUTO) 0.3 % (0-1); EOSINOPHILS # (AUTO) 0.1 X10'3 (0-0.9); EOSINOPHILS % (AUTO) 1.5 % (0-6); HEMATOCRIT 23.9 % (42.0-52.0); LYMPHOCYTES # (AUTO) 0.2 X10'3 (1.1-4.8); LYMPHOCYTES % (AUTO) 4.1 % (21-51); MEAN CORPUSCULAR HEMOGLOBIN 30.6 PG (27.0-31.0); MEAN CORPUSCULAR HGB CONC 33.7 g/dL (33.0-36.5); MEAN CORPUSCULAR VOLUME 90.8 FL (78-98); MEAN PLATELET VOLUME 9.6 FL (7.4-10.4); MONOCYTES # (AUTO) 0.3 X10'3 (0-0.9); MONOCYTES % (AUTO) 5.3 % (2-12); NEUTROPHILS # (AUTO) 5.2 X10'3 (1.8-7.7); NEUTROPHILS % (AUTO) 88.8 % (42-75); PLATELET COUNT 121 X10'3 (140-440); RED BLOOD COUNT 2.63 X10'6 (4.70-6.10); RED CELL DISTRIBUTION WIDTH 16.5 % (11.5-14.5); WHITE BLOOD COUNT 5.8 X10'3 (4.5-11.0)
[2019-03-23 03:08] LABS: ALANINE AMINOTRANSFERASE 27 U/L (12-78); ALBUMIN 0.8 G/DL (3.4-5.0); ALBUMIN/GLOBULIN RATIO 0.2 (1.1-1.5); ALKALINE PHOSPHATASE 81 IU/L (46-116); ANION GAP 5 (8-16); ASPARTATE AMINO TRANSFERASE 86 U/L (10-37); BILIRUBIN,TOTAL 2.9 MG/DL (0.1-1.0); BLOOD UREA NITROGEN 40 MG/DL (7-18); BUN/CREATININE RATIO 23.3 (5.4-32.0); CALCIUM 7.1 MG/DL (8.5-10.1); CHLORIDE 117 MMOL/L (99-107); CREATININE 1.72 MG/DL (0.60-1.10); GLUCOSE 131 MG/DL (70-104); MAGNESIUM 1.7 MG/DL (1.5-2.4); PHOSPHORUS 3.1 MG/DL (2.3-4.5); POTASSIUM 4.2 MMOL/L (3.5-5.1); SODIUM 147 MMOL/L (135-145); TOTAL CARBON DIOXIDE 24.6 MMOL/L (24-32); eGFR 41 ML/MIN
[2019-03-23] MEDS: ipratropium/albuterol 3ml nebule NEB SCH ×6 (03:24→23:14)
[2019-03-23 03:36] LABS: ABG BASE EXCESS -5.6 mmol/L (-2.0-3.0); ABG HCO3 21.3 mmol/L (22.0-26.0); ABG OXYGEN SATURATION 90.7 % (95-98); ABG PCO2 (T) 48.7 mmHg (35.0-45.0); ABG PH (T) 7.258 (7.350-7.450); ABG PO2 (T) 64.4 mmHg (83-108); FCOHb 0.3 % (0.5-1.5); FMetHb 0.3 % (0.3-1.12); FO2Hb 90.2 % (94-100); MINUTE VOLUME 13 L/min; PATIENT TEMPERATURE 36.9; PEEP 5 cm H2O; RESPIRATORY RATE 22 b/min; RESPIRATORY RATE (OBSERVED) 28 b/min; TIDAL VOLUME 450 mL; TOTAL HEMOGLOBIN 8.8 G/dl (14.0-17.9)
[2019-03-23] MEDS: DOPamine 400mg/D5W 250ml 250 ML IV SCH ×3 (04:09→12:42)
[2019-03-23] MEDS: pantoprazole 40MG/NS 100ML BAG 100 ML IV SCH ×4 (05:50→21:10)
--- NOTE | 2019-03-23 06:16 | NUR ---
Problems reprioritized. Patient report given, questions answered & plan of care reviewed with FIEDL Amin.
[2019-03-23] MEDS: MVI, adult No.4 with vit. K 10 ML in dextrose 5% water 500ml 500 ML IV SCH ×2 (07:33)
[2019-03-23] MEDS: OLANZapine **IM** 10 mg inj. IM SCH (07:34)
[2019-03-23] MEDS: nicotine 14mg patch - 24hr TD SCH (07:34)
[2019-03-23] MEDS: fluconazole-Diflucan 200mg/NS 100 ML IV SCH (07:34)
[2019-03-23] MEDS: levoTHYROXINE sod inj. 100mcg/5 ml vial IV SCH (08:00)
[2019-03-23] MEDS: Trace element-5 inj. 1 ML in AA 5 %/CALCIUM/LYTES/DEXT 20% 2,000 ML IV SCH (08:30)
[2019-03-23 08:50] LABS: HEMATOCRIT 23.5 % (42.0-52.0); HEMOGLOBIN 7.9 g/dl (14.0-17.9); MEAN CORPUSCULAR HEMOGLOBIN 30.5 PG (27.0-31.0); MEAN CORPUSCULAR HGB CONC 33.5 g/dL (33.0-36.5); MEAN CORPUSCULAR VOLUME 91.1 FL (78-98); MEAN PLATELET VOLUME 9.3 FL (7.4-10.4); PLATELET COUNT 140 X10'3 (140-440); RED BLOOD COUNT 2.58 X10'6 (4.70-6.10); RED CELL DISTRIBUTION WIDTH 16.5 % (11.5-14.5); WHITE BLOOD COUNT 6.2 X10'3 (4.5-11.0)
[2019-03-23] MEDS ORDERED: normal saline 1000ml 1,000 ML IV ONE (11:10)
[2019-03-23 14:52] LABS: HEMATOCRIT 23.7 % (42.0-52.0); HEMOGLOBIN 7.9 g/dl (14.0-17.9); MEAN CORPUSCULAR HEMOGLOBIN 30.1 PG (27.0-31.0); MEAN CORPUSCULAR HGB CONC 33.2 g/dL (33.0-36.5); MEAN CORPUSCULAR VOLUME 90.6 FL (78-98); MEAN PLATELET VOLUME 9.3 FL (7.4-10.4); PLATELET COUNT 167 X10'3 (140-440); RED BLOOD COUNT 2.61 X10'6 (4.70-6.10); RED CELL DISTRIBUTION WIDTH 16.7 % (11.5-14.5); WHITE BLOOD COUNT 6.6 X10'3 (4.5-11.0)
--- NOTE | 2019-03-23 16:08 | NUR ---
Reassessment: Pt intubated and sedated. NG tube removed per MD note. Patient continues with trickle jejunal tube feeding advancing slowly to rate of 30 ml/hr, per MD note TF will increase as tolerated to 30 ml/hr then increase as tolerated and TPN will be cut in half. Sodium is improving slowly. Continues to receive relistor. Patient was found to have sigmoid colon perforation and intra-abdominal contamination of feces; s/p left colectomy, colostomy, gastrojejunostomy tube and wound vac placement. Will continue to follow. Recommend: 1. Resume jejunal tube feedings at trickle rate starting at 10 ml/hr and advance as tolerated by 10 ml q 8 hours to 30 ml/hr. If tolerated and OK by MD to advance to goal recommend continuous GJTF through J port starting at 30 ml/hr using Vital High Protein and advance as tolerated to goal rate 90ml/hr goal; to provide 2280ml fluid, 1847ml free water, 2280kcals, and 200g protein. 2. when receiving jejunal feedings recommend additional water flush 150 ml q 3 hours 3. daily weights, prealbumin q Thursday/ 4. Continue relistor per MD 5. 2:1 TPN to run continuously using Clinimix E 5/20 at 110ml/hr goal with separate 20% intralipids at 100ml at 8 ml/hr for 12 hours daily. TPN will provide total volume of 2640 ml, 2515 cals, 132 gm protein, and 3.5 mg/kg/min CHO loading. Per warehouse worker 2nd shift this will be cut in half. Addendum: 03/23/19 at [address] Amended: Links added.
--- NOTE | 2019-03-23 18:30 | NUR ---
Patient in room CICU 2010. I have received report from Chi PARRA and had the opportunity to ask questions and assume patient care.
[2019-03-23] MEDS: fat emulsion IV bag 250 ML IV SCH (21:10)
[2019-03-23] MEDS: insulin glargine (Lantus) pen - multi-dose SQ SCH (21:12)
[2019-03-24] VITALS (26 sets, daily range): BP systolic 82–123; BP diastolic 41–68
[2019-03-24] MEDS: piperacillin/tazo 3.375gm/50ml 50 ML IV SCH ×3 (00:07→16:28)
[2019-03-24] MEDS: pantoprazole 40MG/NS 100ML BAG 100 ML IV SCH ×5 (02:10→20:17)
[2019-03-24] MEDS: mineral oil/petrolatum ophthal oint EACHEYE SCH ×4 (02:11→20:31)
[2019-03-24] MEDS: DOPamine 400mg/D5W 250ml 250 ML IV SCH ×2 (02:11→15:14)
[2019-03-24] MEDS: FENTANYL-0.9 % NACL/PF 100 ML IV PRN (02:12)
[2019-03-24] MEDS: midazolam 100mg in NS 100ml 100 ML IV PRN (02:13)
[2019-03-24] MEDS: ipratropium/albuterol 3ml nebule NEB SCH ×6 (02:46→22:29)
[2019-03-24 03:26] LABS: BASOPHILS % (AUTO) 0.3 % (0-1); EOSINOPHILS # (AUTO) 0.1 X10'3 (0-0.9); EOSINOPHILS % (AUTO) 1.2 % (0-6); HEMATOCRIT 23.6 % (42.0-52.0); HEMOGLOBIN 7.9 g/dl (14.0-17.9); LYMPHOCYTES # (AUTO) 0.2 X10'3 (1.1-4.8); LYMPHOCYTES % (AUTO) 2.6 % (21-51); MEAN CORPUSCULAR HEMOGLOBIN 30.6 PG (27.0-31.0); MEAN CORPUSCULAR HGB CONC 33.6 g/dL (33.0-36.5); MEAN PLATELET VOLUME 9.5 FL (7.4-10.4); MONOCYTES # (AUTO) 0.4 X10'3 (0-0.9); MONOCYTES % (AUTO) 4.8 % (2-12); NEUTROPHILS # (AUTO) 7.3 X10'3 (1.8-7.7); NEUTROPHILS % (AUTO) 91.1 % (42-75); PLATELET COUNT 221 X10'3 (140-440); RED BLOOD COUNT 2.59 X10'6 (4.70-6.10); RED CELL DISTRIBUTION WIDTH 16.5 % (11.5-14.5)
[2019-03-24] MEDS: Trace element-5 inj. 1 ML in AA 5 %/CALCIUM/LYTES/DEXT 20% 2,000 ML IV SCH (03:34)
[2019-03-24 03:40] LABS: ALANINE AMINOTRANSFERASE 33 U/L (12-78); ALBUMIN 0.8 G/DL (3.4-5.0); ALBUMIN/GLOBULIN RATIO 0.2 (1.1-1.5); ALKALINE PHOSPHATASE 99 IU/L (46-116); ANION GAP 7 (8-16); ASPARTATE AMINO TRANSFERASE 92 U/L (10-37); BILIRUBIN,TOTAL 2.9 MG/DL (0.1-1.0); BLOOD UREA NITROGEN 49 MG/DL (7-18); BUN/CREATININE RATIO 25.3 (5.4-32.0); CALCIUM 7.4 MG/DL (8.5-10.1); CHLORIDE 116 MMOL/L (99-107); CREATININE 1.94 MG/DL (0.60-1.10); GLUCOSE 98 MG/DL (70-104); MAGNESIUM 1.7 MG/DL (1.5-2.4); POTASSIUM 4.7 MMOL/L (3.5-5.1); SODIUM 145 MMOL/L (135-145); TOTAL CARBON DIOXIDE 22.4 MMOL/L (24-32); TOTAL PROTEIN 5.3 G/DL (6.4-8.2); eGFR 35 ML/MIN
[2019-03-24] MEDS ORDERED: albumin (human) 25% 100 ML IV solution IV ONE (04:00)
[2019-03-24 04:55] LABS: ABG BASE EXCESS -5.5 mmol/L (-2.0-3.0); ABG HCO3 19.9 mmol/L (22.0-26.0); ABG PCO2 (T) 39.4 mmHg (35.0-45.0); ABG PH (T) 7.323 (7.350-7.450); ABG PO2 (T) 78.2 mmHg (83-108); FCOHb 0.2 % (0.5-1.5); FMetHb 0.1 % (0.3-1.12); FO2Hb 94.7 % (94-100); MINUTE VOLUME 17 L/min; PATIENT TEMPERATURE 37.6; PEEP 5 cm H2O; RESPIRATORY RATE 24 b/min; RESPIRATORY RATE (OBSERVED) 37 b/min; TIDAL VOLUME 450 mL; TOTAL HEMOGLOBIN 7.1 G/dl (14.0-17.9)
--- NOTE | 2019-03-24 06:36 | NUR ---
Problems reprioritized. Patient report given, questions answered & plan of care reviewed with Chi PARRA.
[2019-03-24 06:54] LABS: PREALBUMIN 6.1 MG/DL (19-36); TRIGLYCERIDES 105 MG/DL (20-135)
[2019-03-24 07:07] LABS: UREA NITROGEN 24HR,URINE 9.3 GM/24HR (7-20)
[2019-03-24] MEDS: MVI, adult No.4 with vit. K 10 ML in dextrose 5% water 500ml 500 ML IV SCH ×2 (07:29)
[2019-03-24] MEDS: OLANZapine **IM** 10 mg inj. IM SCH (07:30)
[2019-03-24] MEDS: dextrose 5%-1/2 normal saline 1,000 ML IV SCH (07:30)
[2019-03-24] MEDS: methylnaltrexone br 12mg/0.6ml inj***SubQ only SQ SCH (07:31)
[2019-03-24] MEDS: levoTHYROXINE sod inj. 100mcg/5 ml vial IV SCH (07:31)
[2019-03-24] MEDS: nicotine 14mg patch - 24hr TD SCH (07:31)
[2019-03-24] MEDS: insulin regular, human vial - multi-dose SQ SCH ×3 (08:45→20:34)
[2019-03-24 14:05] LABS: HEMOGLOBIN 7.4 g/dl (14.0-17.9); MEAN CORPUSCULAR HEMOGLOBIN 30.3 PG (27.0-31.0); MEAN CORPUSCULAR HGB CONC 33.7 g/dL (33.0-36.5); MEAN CORPUSCULAR VOLUME 89.9 FL (78-98); MEAN PLATELET VOLUME 9.3 FL (7.4-10.4); PLATELET COUNT 270 X10'3 (140-440); RED BLOOD COUNT 2.45 X10'6 (4.70-6.10); RED CELL DISTRIBUTION WIDTH 16.3 % (11.5-14.5)
--- NOTE | 2019-03-24 15:00 | NUR ---
Dr. Martines called and notified of alert value hgb 7.4 (down from 7.9) and hct 22 (down from 23.6). okay with values. Critical Troponin resulted after phone call with Dr. Martines, Trop 0.75 - Charge Nurse notified who notified Dr. Martines. okay with this value.
[2019-03-24] MEDS: levoFLOXACIN-Levaquin 250mg/D5 50 ML IV SCH (15:08)
--- NOTE | 2019-03-24 16:00 | NUR ---
Reassessment: Pt intubated and sedated. Gastric drainage putting out over 2 liters in the past two days, possibly indicative of delayed gastric emptying. Discussed at rounds to decrease jejunal tube feeding to 10 ml/hr trickle rate and increase TPN back to 110 ml/hr goal to meet calorie and protein needs; per MD note surgeon will be consulted. Sodium is improved and now WNL at 145. Continues to receive relistor. Patient was found to have sigmoid colon perforation and intra-abdominal contamination of feces; s/p left colectomy, colostomy, gastrojejunostomy tube and wound vac placement. Will continue to follow. Recommend: 1. Resume jejunal tube feedings at trickle rate starting at 10 ml/hr and advance as tolerated by 10 ml q 8 hours to 30 ml/hr. If tolerated and OK by MD to advance to goal recommend continuous GJTF through J port starting at 30 ml/hr using Vital High Protein and advance as tolerated to goal rate 90ml/hr goal; to provide 2280ml fluid, 1847ml free water, 2280kcals, and 200g protein. 2. when receiving jejunal feedings recommend additional water flush 150 ml q 3 hours 3. daily weights, prealbumin q Thursday/ 4. Continue relistor per MD 5. Continue 2:1 TPN to run continuously using Clinimix E 07/26 at 110ml/hr goal with separate 20% intralipids at 100ml at 8 ml/hr for 12 hours daily. TPN will provide total volume of 2640 ml, 2515 cals, 132 gm protein, and 3.5 mg/kg/min CHO loading. Addendum: 03/24/19 at [address] Amended: Links added.
[2019-03-24] MEDS ORDERED: tranexamic acid inj. 1,000 MG in normal saline 100ml IV soln 100 ML IV ONE (19:20)
[2019-03-24] MEDS ORDERED: albumin (Human) 5% 250ml 250 ML IV ONE ×2 (19:20)
[2019-03-24 19:34] LABS: BASOPHILS % (AUTO) 0.2 % (0-1); EOSINOPHILS % (AUTO) 0.2 % (0-6); HEMOGLOBIN 7.2 g/dl (14.0-17.9); LYMPHOCYTES # (AUTO) 0.1 X10'3 (1.1-4.8); LYMPHOCYTES % (AUTO) 1.5 % (21-51); MEAN CORPUSCULAR HEMOGLOBIN 30.5 PG (27.0-31.0); MEAN CORPUSCULAR HGB CONC 33.4 g/dL (33.0-36.5); MEAN CORPUSCULAR VOLUME 91.3 FL (78-98); MEAN PLATELET VOLUME 9.2 FL (7.4-10.4); MONOCYTES # (AUTO) 0.4 X10'3 (0-0.9); NEUTROPHILS # (AUTO) 9.3 X10'3 (1.8-7.7); NEUTROPHILS % (AUTO) 94.1 % (42-75); PLATELET COUNT 286 X10'3 (140-440); RED BLOOD COUNT 2.36 X10'6 (4.70-6.10); RED CELL DISTRIBUTION WIDTH 17.2 % (11.5-14.5); WHITE BLOOD COUNT 9.8 X10'3 (4.5-11.0)
[2019-03-24 19:38] LABS: HEMATOCRIT 21.6 % (42.0-52.0)
[2019-03-24] MEDS ORDERED: calcium chloride 100 MG/1 ML inj IV ONE (19:55)
[2019-03-24] MEDS ORDERED: calcium chloride inj. 1,000 MG in normal saline 100ml IV soln 90 ML IV ONE (20:00)
[2019-03-24] MEDS ORDERED: pantoprazole 40MG/NS 100ML BAG 100 ML IV SCH (20:00)
[2019-03-24] MEDS: lactobacillus rhamnosus 10,000 MMU CELLS/CAPSULE PO SCH (20:30)
[2019-03-24] MEDS: fat emulsion IV bag 250 ML IV SCH (20:30)
[2019-03-24] MEDS: insulin glargine (Lantus) pen - multi-dose SQ SCH (20:35)
[2019-03-25] VITALS (24 sets, daily range): BP systolic 84–101; BP diastolic 43–50
[2019-03-25] MEDS: ipratropium/albuterol 3ml nebule NEB SCH ×6 (02:21→22:27)
[2019-03-25] MEDS: Trace element-5 inj. 1 ML in AA 5 %/CALCIUM/LYTES/DEXT 20% 2,000 ML IV SCH ×2 (02:30→20:59)
[2019-03-25] MEDS: mineral oil/petrolatum ophthal oint EACHEYE SCH ×4 (02:30→20:58)
[2019-03-25] MEDS: insulin regular, human vial - multi-dose SQ SCH ×4 (02:36→21:13)
[2019-03-25 03:22] LABS: BASOPHILS % (AUTO) 0.3 % (0-1); EOSINOPHILS % (AUTO) 0.2 % (0-6); HEMATOCRIT 22.7 % (42.0-52.0); HEMOGLOBIN 7.8 g/dl (14.0-17.9); LYMPHOCYTES # (AUTO) 0.2 X10'3 (1.1-4.8); LYMPHOCYTES % (AUTO) 1.8 % (21-51); MEAN CORPUSCULAR HEMOGLOBIN 31.3 PG (27.0-31.0); MEAN CORPUSCULAR HGB CONC 34.2 g/dL (33.0-36.5); MEAN CORPUSCULAR VOLUME 91.6 FL (78-98); MEAN PLATELET VOLUME 9.3 FL (7.4-10.4); MONOCYTES # (AUTO) 0.4 X10'3 (0-0.9); MONOCYTES % (AUTO) 4.1 % (2-12); NEUTROPHILS % (AUTO) 93.6 % (42-75); PLATELET COUNT 276 X10'3 (140-440); RED BLOOD COUNT 2.48 X10'6 (4.70-6.10); RED CELL DISTRIBUTION WIDTH 15.6 % (11.5-14.5); WHITE BLOOD COUNT 9.6 X10'3 (4.5-11.0)
[2019-03-25 03:43] LABS: ALANINE AMINOTRANSFERASE 38 U/L (12-78); ALBUMIN 1.3 G/DL (3.4-5.0); ALKALINE PHOSPHATASE 112 IU/L (46-116); ANION GAP 7 (8-16); ASPARTATE AMINO TRANSFERASE 92 U/L (10-37); BILIRUBIN,TOTAL 4.6 MG/DL (0.1-1.0); BLOOD UREA NITROGEN 59 MG/DL (7-18); BUN/CREATININE RATIO 27.6 (5.4-32.0); CALCIUM 7.7 MG/DL (8.5-10.1); CHLORIDE 113 MMOL/L (99-107); CREATININE 2.14 MG/DL (0.60-1.10); GLUCOSE 134 MG/DL (70-104); MAGNESIUM 1.9 MG/DL (1.5-2.4); POTASSIUM 5.2 MMOL/L (3.5-5.1); SODIUM 142 MMOL/L (135-145); eGFR 32 ML/MIN
[2019-03-25 03:50] LABS: ALBUMIN/GLOBULIN RATIO 0.3 (1.1-1.5); TOTAL PROTEIN 5.2 G/DL (6.4-8.2)
[2019-03-25 03:50] LABS: ABG BASE EXCESS -8.2 mmol/L (-2.0-3.0); ABG HCO3 19.2 mmol/L (22.0-26.0); ABG OXYGEN SATURATION 91.9 % (95-98); ABG PCO2 (T) 49.8 mmHg (35.0-45.0); ABG PH (T) 7.207 (7.350-7.450); ABG PO2 (T) 70.5 mmHg (83-108); FCOHb 0.1 % (0.5-1.5); FMetHb 0.1 % (0.3-1.12); FO2Hb 91.7 % (94-100); MINUTE VOLUME 15 L/min; PATIENT TEMPERATURE 37.6; PEEP 5 cm H2O; RESPIRATORY RATE 24 b/min; RESPIRATORY RATE (OBSERVED) 28 b/min; TIDAL VOLUME 450 mL; TOTAL HEMOGLOBIN 8.3 G/dl (14.0-17.9)
[2019-03-25] MEDS: pantoprazole 40MG/NS 100ML BAG 100 ML IV SCH ×5 (05:23→20:59)
--- NOTE | 2019-03-25 06:51 | NUR ---
Problems reprioritized. Patient report given, questions answered & plan of care reviewed with González PARRA.
[2019-03-25] MEDS: OLANZapine **IM** 10 mg inj. IM SCH (08:00)
[2019-03-25] MEDS: levoFLOXACIN-Levaquin 250mg/D5 50 ML IV SCH (08:36)
[2019-03-25] MEDS: levoTHYROXINE sod inj. 100mcg/5 ml vial IV SCH (08:38)
[2019-03-25] MEDS: lactobacillus rhamnosus 10,000 MMU CELLS/CAPSULE PO SCH ×2 (08:53→20:58)
[2019-03-25] MEDS: piperacillin/tazo 3.375gm/50ml 50 ML IV SCH ×2 (08:53)
[2019-03-25] MEDS: DOPamine 400mg/D5W 250ml 250 ML IV SCH ×3 (08:53→23:16)
[2019-03-25] MEDS: nicotine 14mg patch - 24hr TD SCH (08:54)
[2019-03-25 09:04] LABS: HEMATOCRIT 22.8 % (42.0-52.0); HEMOGLOBIN 7.7 g/dl (14.0-17.9); MEAN CORPUSCULAR HEMOGLOBIN 30.6 PG (27.0-31.0); MEAN CORPUSCULAR HGB CONC 33.6 g/dL (33.0-36.5); MEAN CORPUSCULAR VOLUME 91.1 FL (78-98); PLATELET COUNT 296 X10'3 (140-440); RED CELL DISTRIBUTION WIDTH 15.9 % (11.5-14.5); WHITE BLOOD COUNT 9.5 X10'3 (4.5-11.0)
[2019-03-25] MEDS ORDERED: furosemide 20 MG/2 ML vial IV ONE (09:20)
[2019-03-25] MEDS: MVI, adult No.4 with vit. K 10 ML in dextrose 5% water 500ml 500 ML IV SCH ×2 (09:35)
[2019-03-25] MEDS: furosemide 20 MG/2 ML vial IV SCH ×3 (13:22→20:58)
[2019-03-25 14:37] LABS: HEMOGLOBIN 7.8 g/dl (14.0-17.9); MEAN CORPUSCULAR HEMOGLOBIN 30.9 PG (27.0-31.0); MEAN CORPUSCULAR HGB CONC 33.9 g/dL (33.0-36.5); MEAN CORPUSCULAR VOLUME 91.4 FL (78-98); MEAN PLATELET VOLUME 9.1 FL (7.4-10.4); PLATELET COUNT 327 X10'3 (140-440); RED BLOOD COUNT 2.52 X10'6 (4.70-6.10); RED CELL DISTRIBUTION WIDTH 15.8 % (11.5-14.5); WHITE BLOOD COUNT 10.2 X10'3 (4.5-11.0)
--- NOTE | 2019-03-25 18:37 | NUR ---
Problems reprioritized. Patient report given, questions answered & plan of care reviewed with Melchor PARRA.
[2019-03-25 20:35] LABS: HEMATOCRIT 23.1 % (42.0-52.0); HEMOGLOBIN 7.8 g/dl (14.0-17.9); MEAN CORPUSCULAR HEMOGLOBIN 30.6 PG (27.0-31.0); MEAN CORPUSCULAR HGB CONC 33.8 g/dL (33.0-36.5); MEAN CORPUSCULAR VOLUME 90.4 FL (78-98); MEAN PLATELET VOLUME 8.9 FL (7.4-10.4); PLATELET COUNT 349 X10'3 (140-440); RED BLOOD COUNT 2.56 X10'6 (4.70-6.10); RED CELL DISTRIBUTION WIDTH 16.2 % (11.5-14.5); WHITE BLOOD COUNT 9.5 X10'3 (4.5-11.0)
[2019-03-25] MEDS: fat emulsion IV bag 250 ML IV SCH (20:59)
[2019-03-25] MEDS: insulin glargine (Lantus) pen - multi-dose SQ SCH (21:14)
[2019-03-26] VITALS (12 sets, daily range): BP systolic 83–103; BP diastolic 42–84
[2019-03-26] MEDS: furosemide 20 MG/2 ML vial IV SCH ×3 (00:29→08:00)
[2019-03-26] MEDS: pantoprazole 40MG/NS 100ML BAG 100 ML IV SCH ×3 (02:18→08:26)
[2019-03-26] MEDS: mineral oil/petrolatum ophthal oint EACHEYE SCH ×2 (02:18→08:31)
[2019-03-26] MEDS: insulin regular, human vial - multi-dose SQ SCH ×2 (02:20→09:09)
[2019-03-26] MEDS: ipratropium/albuterol 3ml nebule NEB SCH ×3 (02:33→10:32)
[2019-03-26 02:36] LABS: BASOPHILS % (AUTO) 0.4 % (0-1); EOSINOPHILS # (AUTO) 0.1 X10'3 (0-0.9); EOSINOPHILS % (AUTO) 0.8 % (0-6); HEMOGLOBIN 7.4 g/dl (14.0-17.9); LYMPHOCYTES # (AUTO) 0.2 X10'3 (1.1-4.8); LYMPHOCYTES % (AUTO) 2.8 % (21-51); MEAN CORPUSCULAR HEMOGLOBIN 30.4 PG (27.0-31.0); MEAN CORPUSCULAR HGB CONC 33.6 g/dL (33.0-36.5); MEAN CORPUSCULAR VOLUME 90.3 FL (78-98); MEAN PLATELET VOLUME 8.7 FL (7.4-10.4); MONOCYTES # (AUTO) 0.6 X10'3 (0-0.9); MONOCYTES % (AUTO) 6.6 % (2-12); NEUTROPHILS # (AUTO) 7.7 X10'3 (1.8-7.7); NEUTROPHILS % (AUTO) 89.4 % (42-75); PLATELET COUNT 353 X10'3 (140-440); RED BLOOD COUNT 2.44 X10'6 (4.70-6.10); RED CELL DISTRIBUTION WIDTH 15.9 % (11.5-14.5); WHITE BLOOD COUNT 8.6 X10'3 (4.5-11.0)
[2019-03-26 02:51] LABS: ALANINE AMINOTRANSFERASE 111 U/L (12-78); ALKALINE PHOSPHATASE 186 IU/L (46-116); ANION GAP 9 (8-16); ASPARTATE AMINO TRANSFERASE 212 U/L (10-37); BILIRUBIN,TOTAL 4.8 MG/DL (0.1-1.0); BLOOD UREA NITROGEN 74 MG/DL (7-18); BUN/CREATININE RATIO 30.7 (5.4-32.0); CALCIUM 7.3 MG/DL (8.5-10.1); CHLORIDE 110 MMOL/L (99-107); CREATININE 2.41 MG/DL (0.60-1.10); GLUCOSE 114 MG/DL (70-104); MAGNESIUM 1.9 MG/DL (1.5-2.4); POTASSIUM 4.9 MMOL/L (3.5-5.1); SODIUM 139 MMOL/L (135-145); TOTAL CARBON DIOXIDE 20.1 MMOL/L (24-32); eGFR 28 ML/MIN
[2019-03-26 03:06] LABS: ALBUMIN/GLOBULIN RATIO 0.3 (1.1-1.5); PHOSPHORUS 5.1 MG/DL (2.3-4.5); TOTAL PROTEIN 4.5 G/DL (6.4-8.2)
[2019-03-26] MEDS ORDERED: albumin (Human) 5% 250ml 250 ML IV ONE ×2 (03:25)
[2019-03-26] MEDS: DOPamine 400mg/D5W 250ml 250 ML IV SCH ×2 (04:23→09:13)
[2019-03-26 04:26] LABS: ABG BASE EXCESS -9.5 mmol/L (-2.0-3.0); ABG HCO3 17.5 mmol/L (22.0-26.0); ABG PCO2 (T) 44.9 mmHg (35.0-45.0); ABG PH (T) 7.214 (7.350-7.450); ABG PO2 (T) 76.7 mmHg (83-108); FCOHb 0.1 % (0.5-1.5); FMetHb 0.3 % (0.3-1.12); FO2Hb 92.6 % (94-100); MINUTE VOLUME 14 L/min; PATIENT TEMPERATURE 37.7; PEEP 5 cm H2O; RESPIRATORY RATE 24 b/min; RESPIRATORY RATE (OBSERVED) 28 b/min; TIDAL VOLUME 450 mL; TOTAL HEMOGLOBIN 7.9 G/dl (14.0-17.9)
--- NOTE | 2019-03-26 06:49 | NUR ---
Problems reprioritized. Patient report given, questions answered & plan of care reviewed with González PARRA.
[2019-03-26] MEDS: dextrose 5%-1/2 normal saline 1,000 ML IV SCH (07:30)
[2019-03-26] MEDS: OLANZapine **IM** 10 mg inj. IM SCH (08:00)
[2019-03-26] MEDS: levoFLOXACIN-Levaquin 250mg/D5 50 ML IV SCH (08:26)
[2019-03-26] MEDS: levoTHYROXINE sod inj. 100mcg/5 ml vial IV SCH (08:29)
[2019-03-26] MEDS: lactobacillus rhamnosus 10,000 MMU CELLS/CAPSULE PO SCH (08:29)
[2019-03-26] MEDS: MVI, adult No.4 with vit. K 10 ML in dextrose 5% water 500ml 500 ML IV SCH ×2 (08:29)
[2019-03-26] MEDS: nicotine 14mg patch - 24hr TD SCH (08:31)
[2019-03-26] MEDS: methylnaltrexone br 12mg/0.6ml inj***SubQ only SQ SCH (08:31)
[2019-03-26 09:24] LABS: HEMOGLOBIN 7.4 g/dl (14.0-17.9); MEAN CORPUSCULAR VOLUME 91.3 FL (78-98); MEAN PLATELET VOLUME 8.6 FL (7.4-10.4); PLATELET COUNT 354 X10'3 (140-440); RED BLOOD COUNT 2.38 X10'6 (4.70-6.10); WHITE BLOOD COUNT 9.6 X10'3 (4.5-11.0)
[2019-03-26 09:28] LABS: HEMATOCRIT 21.7 % (42.0-52.0)
--- NOTE | 2019-03-26 12:05 | NUR ---
Pre-extubation: [facility] called, spoke with Kathryn Ref# of [phone]. Okay per Donor network to extubate at this time.
[2019-03-26] MEDS ORDERED: HYDROcodone/acetaminophen 10/325mg tab PO PRN (12:25)
[2019-03-26] MEDS: morphine 10mg/ml inj. IV PRN ×2 (13:06→13:16)
[2019-03-26] MEDS: LORazepam 2 mg/ml vial IV PRN ×2 (13:06→13:16)
--- NOTE | 2019-03-26 16:20 | NUR ---
RN IS TO DOCUMENT YES TO ALL APPLICABLE AREAS Pronouncement of : 1. Time Physician Notified: 1400 2. Date of : 03/26/19 3. Time of : 1322 4. DNR/Withdraw life support documented:Yes 5. Monitor strip has been placed on chart:Yes 6. Assessment process is of one-minute duration and includes following criteria: a) Patient is unresponsive to all stimuli: Y b) Pupils fixed and non-reactive:Y c) Auscultation of precordium reveals absence of heart tones:Y d) Auscultation of lungs reveals absence of breath sounds:Y e) Absence of blood pressure / all vital signs:Y f) QRS complexes are not present on monitor / EKG strip:Y g) Pacer spikes without capture:Y 4. Comments:Pronouncement of performed with Jo PARRA Spoke with Rosa Dubonazar () to let her know patient passed. Jose F/Lluvia Schulte ([id number]) at the bedside. Per , she would like patient to be cremated via [facility] in [facility]. Spoke with cremation service at 1400, which is based in the [facility], and they report they will contact a local source to pick patient up; however, no call to notify of ETA and follow-up call given at 1600. Per [facility], they did not have a record of our conversation and was thus restarted on this process. By 1616, another publications sales representative called to state that their service has been "on their way from the [place] and will arrive when they arrive."
--- NOTE | 2019-03-26 16:25 | NUR ---
Spoke to Ayad from [facility] who reports his ETA will be aprox [phone]. Phone number: [phone]
== END 2019-03-26 13:22 | disposition expired | DRG 710 ==
LOC: ER 08:17 → ED HOLD 11:21 → CICU 2S 12:04
PROVIDERS: ADMIT Internal Medicine Critical Care Medicine; ATTEND Internal Medicine Critical Care Medicine
PROC: B41G1ZZ Fluoroscopy of Left Lower Extremity Arteries using Low Osmolar Contrast (ICD-10-PCS; 2019-03-11)
PROC: 5A1955Z Respiratory Ventilation, Greater than 96 Consecutive Hours (ICD-10-PCS; 2019-03-14)
PROC: 0DBN0ZZ Excision of Sigmoid Colon, Open Approach (ICD-10-PCS; 2019-03-14)
PROC: 02HV33Z Insertion of Infusion Device into Superior Vena Cava, Percutaneous Approach (ICD-10-PCS; 2019-03-14)
PROC: 0BH17EZ Insertion of Endotracheal Airway into Trachea, Via Natural or Artificial Opening (ICD-10-PCS; 2019-03-14)
PROC: 0BH17EZ Insertion of Endotracheal Airway into Trachea, Via Natural or Artificial Opening (ICD-10-PCS; principal; 2019-03-14 10:41)
PROC: 0D160ZA Bypass Stomach to Jejunum, Open Approach (ICD-10-PCS; 2019-03-15)
PROC: 0D1E0Z4 Bypass Large Intestine to Cutaneous, Open Approach (ICD-10-PCS; 2019-03-15)
DX: A41.9 Sepsis, unspecified organism (principal); J96.00 Acute respiratory failure, unspecified whether with hypoxia or hypercapnia; K63.1 Perforation of intestine (nontraumatic); R65.21 Severe sepsis with septic shock; K65.0 Generalized (acute) peritonitis; N17.9 Acute kidney failure, unspecified; E03.9 Hypothyroidism, unspecified; E78.00 Pure hypercholesterolemia, unspecified; I10 Essential (primary) hypertension; I82.402 Acute embolism and thrombosis of unspecified deep veins of left lower extremity; F29 Unspecified psychosis not due to a substance or known physiological condition; F41.9 Anxiety disorder, unspecified; J44.9 Chronic obstructive pulmonary disease, unspecified; E87.6 Hypokalemia; I73.9 Peripheral vascular disease, unspecified; D64.9 Anemia, unspecified; Z66 Do not resuscitate
CPT/HCPCS: 36245; 36415; 36600; 70450; 71045; 71250; 72125; 74018; 74176; 75710; 76937; 80048; 80053; 80305; 80320; 81001; 82272; 82550; 82570; 82803; 82948; 83036; 83540; 83550; 83605; 83735; 84100; 84132; 84133; 84134; 84145; 84156; 84300; 84439; 84443; 84478; 84484; 84560; 85018; 85025; 85027; 85610; 85730; 86885; 86900; 86901; 86920; 87040; 87070; 87077; 87081; 87088; 87186; 93005; 93306; 93926; 93970; 94002; 94003; 94640; 94760; 96365; 96367; 96375; 99291; A4421; A4618; A6258; A6550; A7000; B4087; C1769; C1894; C9113; G0269; G0378; J0131; J0461; J1170; J1265; J1450; J1644; J1650; J1815; J1940; J1956; J2001; J2060; J2212; J2250; J2270; J2405; J2543; J2795; J3010; J3370; J3480; J3490; J7040; J7060; P9016; P9045; P9047; Q9967